=== PATIENT | male | born 1935 | race Caucasian/White ===

== ENCOUNTER 2016-06-01 09:23 | Outpatient (CLI) | payer MEDICARE, OTHER | END 2016-06-01 09:24 | disposition home or self-care (01) | DX: I48.2 Chronic atrial fibrillation (principal); Z79.01 Long term (current) use of anticoagulants ==

== ENCOUNTER 2016-07-06 08:32 | Outpatient (CLI) | payer MEDICARE, OTHER | END 2016-07-06 08:33 | disposition home or self-care (01) | DX: E11.9 Type 2 diabetes mellitus without complications (principal); E78.2 Mixed hyperlipidemia; Z79.899 Other long term (current) drug therapy; I48.2 Chronic atrial fibrillation; R41.2 Retrograde amnesia ==

== ENCOUNTER 2016-08-03 08:00 | Outpatient (CLI) | payer MEDICARE, OTHER | END 2016-08-03 08:01 | DX: I48.2 Chronic atrial fibrillation (principal); Z79.01 Long term (current) use of anticoagulants ==

== ENCOUNTER 2016-08-29 08:40 | Outpatient (CLI) | payer MEDICARE, OTHER ==
[2016-08-29 09:37] LABS: HEMOGLOBIN A1C 1.17 g/dL
== END 2016-08-29 08:41 | disposition home or self-care (01) ==
LOC: LAB 08:40
PROVIDERS: ATTEND Internal Medicine
DX: E11.65 Type 2 diabetes mellitus with hyperglycemia (principal)
CPT/HCPCS: 36415; 82947; 83036

== ENCOUNTER 2016-09-04 10:43 | Outpatient (CLI) | payer MEDICARE, OTHER | END 2016-09-04 10:44 | disposition home or self-care (01) | LOC: LAB 10:43 | PROVIDERS: ATTEND Internal Medicine | DX: I48.2 Chronic atrial fibrillation (principal) | CPT/HCPCS: 85610 ==

== ENCOUNTER 2016-09-28 07:52 | Outpatient (CLI) | payer MEDICARE, OTHER | END 2016-09-28 07:53 | disposition home or self-care (01) | LOC: LAB 07:52 | PROVIDERS: ATTEND Internal Medicine | DX: I48.2 Chronic atrial fibrillation (principal) | CPT/HCPCS: 85610 ==

== ENCOUNTER 2016-10-07 17:49 | Emergency (ER) | payer MEDICARE, OTHER ==
[2016-10-07] MEDS ORDERED: TETANUS/DIPHTHERIA/PERTUSSIS 0.5 ML SYRINGE IM ONE ×2 (17:59→18:19)
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
--- NOTE | 2016-10-07 19:16 | XRAY Preliminary Report ---
Exam: XR Ankle 3 View RT IMPRESSION: Oblique nondisplaced fracture distal right fibula. No other acute fractures. Soft tissue swelling and plantar calcaneal spur. [facility] SITE ID: [id number]
--- NOTE | 2016-10-07 19:18 | XRAY Report ---
EXAM: LEFT ANKLE RADIOGRAPHY EXAM DATE: 10/07/2016 06:29 PM. CLINICAL HISTORY: Foot ankle inj. COMPARISON: 01/24/2016 TECHNIQUE: 3 views. FINDINGS: Bones: Oblique fracture of the distal fibula. Calcific fragments adjacent to the tip of the medial m alleolus are unchanged since 01/24/2016. Small plantar calcaneal spur. Joints: No effusion. No subluxations. The ankle mortise is normally aligned. Soft Tissues: Soft tissue swelling lateral greater than medial malleolus. IMPRESSION: Oblique nondisplaced fracture distal right fibula. No other acute fractures. Soft tissue swelling and plantar calcaneal spur. [facility] Referring Provider Line: [phone] SITE ID: [id number]
--- NOTE | 2016-10-07 19:20 | XRAY Preliminary Report ---
Exam: XR Foot 3 View RT IMPRESSION: 1. See separate ankle radiograph report. No fracture of the right foot. 2. Lateral foot and ankle swelling. [facility] SITE ID: [id number]
[2016-10-07 19:22] VITALS: BP 126/76
--- NOTE | 2016-10-07 19:36 | XRAY Report ---
EXAM: RIGHT FOOT RADIOGRAPHY EXAM DATE: 10/07/2016 06:29 P.M. CLINICAL HISTORY: Foot/ankle injury. COMPARISON: 01/24/2016. TECHNIQUE: 3 views. FINDINGS: Bones: No displaced fracture of the right foot. Nondisplaced distal right fibular fracture better see n on ankle radiograph. Joints: Normal. No subluxations. Soft Tissues: Lateral foot and ankle swelling. IMPRESSION: 1. See separate ankle radiograph report. No fracture of the right foot. 2. Lateral foot and ankle swelling. [facility] Referring Provider Line: [phone] SITE ID: [id number]
== END 2016-10-07 19:28 | disposition home or self-care (01) ==
LOC: ED 17:49
DX: S82.831A Other fracture of upper and lower end of right fibula, initial encounter for closed fracture (principal); S90.811A Abrasion, right foot, initial encounter; V86.59XA Driver of other special all-terrain or other off-road motor vehicle injured in nontraffic accident, initial encounter; I10 Essential (primary) hypertension; E11.9 Type 2 diabetes mellitus without complications; I49.9 Cardiac arrhythmia, unspecified; Z23 Encounter for immunization; Z79.84 Long term (current) use of oral hypoglycemic drugs; Z79.2 Long term (current) use of antibiotics
CPT/HCPCS: 29515; 90471; 99283

== ENCOUNTER 2016-10-17 06:05 | Day surgery (SDC) | payer MEDICARE, OTHER ==
[2016-10-17] MEDS ORDERED: LACTATED RINGERS 1,000 ML IV ONE (07:00)
[2016-10-17] MEDS ORDERED: ceFAZolin 2 GM/50 ML 50 ML IV ONE (07:22)
[2016-10-17] MEDS ORDERED: PROPOFOL 200 MG/20 ML VIAL IVP ONE (08:00)
[2016-10-17] MEDS ORDERED: ACETAMINOPHEN 1,000 MG/100 ML VIAL IV ONE (08:00)
[2016-10-17] MEDS ORDERED: ONDANSETRON 4 MG/2 ML VIAL IVP ONE (08:00)
[2016-10-17] MEDS ORDERED: METOPROLOL 5 MG/5 ML VIAL IVP ONE (08:00)
[2016-10-17] MEDS ORDERED: DEXAMETHASONE 4 MG/ML VIAL IVP ONE (08:00)
[2016-10-17] MEDS ORDERED: LIDOCAINE-MPF 2% 5 ML VIAL IM ONE (08:00)
[2016-10-17] MEDS ORDERED: MIDAZOLAM 2 MG/2 ML VIAL IVP ONE (08:00)
[2016-10-17] MEDS ORDERED: fentaNYL 100 MCG/2 ML VIAL IVP ONE (08:00)
[2016-10-17] MEDS ORDERED: BUPIVACAINE 0.25%-EPI 1:200000 PF 30 ML VIAL SUBQ ONE ×2 (08:10→09:05)
[2016-10-17] MEDS ORDERED: LIDOCAINE 1% 50 ML MDV SUBQ ONE ×2 (08:11→09:05)
[2016-10-17] MEDS: HYDROmorphone 1 MG/ML SYRINGE ONE ×2 (09:35→09:42)
[2016-10-17] MEDS ORDERED: KETOROLAC 15 MG/ML VIAL ONE (09:47)
[2016-10-17] MEDS ORDERED: oxyCOD/ACETAMIN 5 MG/325 MG TABLET PO ONE (10:25)
[2016-10-17 11:21] VITALS: BP 110/82
--- NOTE | 2016-10-17 12:20 | XRAY Report ---
REVISED: THIS REPORT WAS ORIGINALLY SIGNED ON 10/17/2016 @ 2122. ORDERS LINKED ON 10/31/2016. TWO VIEWS OF THE RIGHT ANKLE TAKEN IN SURGERY: 10/17/2016 CLINICAL HISTORY: Internal fixation of right ankle fracture dislocation. FINDINGS: Two views of the right ankle were obtained AP and lateral with the mobile C-arm in surgery. They demonstrate internal fixation of distal right fibular fracture with orthopedic plate and screws bridging the fracture site. Anatomical position and alignment is noted. There is a single screw extending through the fibula and tibia maintaining the reduction of the previously noted subluxation/dislocation of the right ankle. Anatomical position and alignment is now seen at the right ankle joint. Osteoarthritis is detected involving the medial malleolus with some spurring. IMPRESSION: 1. INTERNAL FIXATION AND REDUCTION OF DISTAL RIGHT FIBULAR FRACTURE WITH ANATOMICAL POSITION AND ALIGNMENT. 2. INTERNAL FIXATION AND REDUCTION OF PREVIOUSLY NOTED SUBLUXATION/DISLOCATION OF THE RIGHT ANKLE. JOB #: [id number] EXT JOB #: [id number] GIDEON
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
== END 2016-10-17 06:06 | disposition home or self-care (01) ==
LOC: SDS 06:05
PROVIDERS: ATTEND Orthopaedic Surgery
PROC: 0QSJ04Z Reposition Right Fibula with Internal Fixation Device, Open Approach (ICD-10-PCS; principal; 2016-10-17 07:30)
DX: S82.831A Other fracture of upper and lower end of right fibula, initial encounter for closed fracture (principal); S93.431A Sprain of tibiofibular ligament of right ankle, initial encounter; X50.1XXA Overexertion from prolonged static or awkward postures, initial encounter; Y93.I9 Activity, other involving external motion; I10 Essential (primary) hypertension; E11.9 Type 2 diabetes mellitus without complications; I48.91 Unspecified atrial fibrillation; Z79.01 Long term (current) use of anticoagulants; Z79.84 Long term (current) use of oral hypoglycemic drugs
CPT/HCPCS: 27792; 27829; 73600; A9270; C1713; J0131; J0690; J1170; J7120

== ENCOUNTER 2016-10-25 11:43 | Outpatient (CLI) | payer MEDICARE, OTHER | END 2016-10-25 11:44 | disposition home or self-care (01) | LOC: LAB 11:43 | PROVIDERS: ATTEND Internal Medicine | DX: I48.2 Chronic atrial fibrillation (principal) | CPT/HCPCS: 85610 ==

== ENCOUNTER 2016-11-22 07:31 | Outpatient (CLI) | payer MEDICARE, OTHER ==
[2016-11-22 07:57] LABS: PT - PROTHROMBIN TIME 51.4 secs (9.9-12.6)
[2016-11-22 09:04] LABS: INR 4.5 (0.8-1.2)
== END 2016-11-22 07:32 | disposition home or self-care (01) ==
LOC: LAB 07:31
PROVIDERS: ATTEND Internal Medicine
DX: I48.2 Chronic atrial fibrillation (principal)
CPT/HCPCS: 36415; 85610

== ENCOUNTER 2016-12-05 08:02 | Outpatient (CLI) | payer MEDICARE, OTHER | END 2016-12-05 08:03 | disposition home or self-care (01) | LOC: LAB 08:02 | PROVIDERS: ATTEND Internal Medicine | DX: I48.2 Chronic atrial fibrillation (principal); Z79.01 Long term (current) use of anticoagulants | CPT/HCPCS: 85610 ==

== ENCOUNTER 2016-12-12 08:10 | Outpatient (CLI) | payer MEDICARE, OTHER ==
[2016-12-12 09:28] LABS: HEMOGLOBIN A1C 0.9 g/dL
== END 2016-12-12 08:11 | disposition home or self-care (01) ==
LOC: LAB 08:10
PROVIDERS: ATTEND Internal Medicine
DX: Z79.899 Other long term (current) drug therapy (principal); E11.65 Type 2 diabetes mellitus with hyperglycemia
CPT/HCPCS: 36415; 83036

== ENCOUNTER 2017-01-09 07:47 | Outpatient (CLI) | payer MEDICARE, OTHER | END 2017-01-09 07:48 | disposition home or self-care (01) | LOC: LAB 07:47 | PROVIDERS: ATTEND Internal Medicine | DX: I48.2 Chronic atrial fibrillation (principal); Z79.01 Long term (current) use of anticoagulants | CPT/HCPCS: 85610 ==

== ENCOUNTER 2017-01-23 08:20 | Outpatient (CLI) | payer MEDICARE, OTHER | END 2017-01-23 08:21 | disposition home or self-care (01) | LOC: LAB 08:20 | PROVIDERS: ATTEND Internal Medicine | DX: I48.2 Chronic atrial fibrillation (principal); Z79.01 Long term (current) use of anticoagulants | CPT/HCPCS: 85610 ==

== ENCOUNTER 2017-02-26 08:26 | Outpatient (CLI) | payer MEDICARE, OTHER | END 2017-02-26 08:27 | disposition home or self-care (01) | LOC: LAB 08:26 | PROVIDERS: ATTEND Internal Medicine | DX: I48.2 Chronic atrial fibrillation (principal); Z79.01 Long term (current) use of anticoagulants | CPT/HCPCS: 85610 ==

== ENCOUNTER 2017-03-05 08:07 | Outpatient (CLI) | payer MEDICARE, OTHER | END 2017-03-05 08:08 | disposition home or self-care (01) | LOC: LAB 08:07 | PROVIDERS: ATTEND Internal Medicine | DX: I48.2 Chronic atrial fibrillation (principal); Z79.01 Long term (current) use of anticoagulants | CPT/HCPCS: 85610 ==

== ENCOUNTER 2017-03-22 08:02 | Outpatient (CLI) | payer MEDICARE, OTHER | END 2017-03-22 08:03 | disposition home or self-care (01) | LOC: LAB 08:02 | PROVIDERS: ATTEND Internal Medicine | DX: I48.2 Chronic atrial fibrillation (principal); Z79.01 Long term (current) use of anticoagulants | CPT/HCPCS: 85610 ==

== ENCOUNTER 2017-04-23 09:20 | Outpatient (CLI) | payer MEDICARE, OTHER | END 2017-04-23 09:21 | disposition home or self-care (01) | LOC: LAB 09:20 | PROVIDERS: ATTEND Internal Medicine | DX: I48.2 Chronic atrial fibrillation (principal); Z79.01 Long term (current) use of anticoagulants | CPT/HCPCS: 85610 ==

== ENCOUNTER 2017-05-08 09:18 | Outpatient (CLI) | payer MEDICARE, OTHER | END 2017-05-08 09:19 | disposition home or self-care (01) | LOC: LAB 09:18 | PROVIDERS: ATTEND Internal Medicine | DX: E11.9 Type 2 diabetes mellitus without complications (principal); F03.90 Unspecified dementia, unspecified severity, without behavioral disturbance, psychotic disturbance, mood disturbance, and anxiety; I48.91 Unspecified atrial fibrillation; I10 Essential (primary) hypertension; E78.5 Hyperlipidemia, unspecified | CPT/HCPCS: 36415; 80053; 80061; 83036; 83721; 85025 ==

== ENCOUNTER 2017-05-09 08:49 | Outpatient (CLI) | payer MEDICARE, OTHER ==
[2017-05-09 09:11] LABS: BASOPHILS # (AUTO) 0.1 10^3/uL (0.0-0.1); BASOPHILS % (AUTO) 1.1 %; EOSINOPHILS # (AUTO) 0.2 10^3/uL (0.0-0.7); EOSINOPHILS % (AUTO) 1.7 %; HGB - HEMOGLOBIN 13.3 g/dL (14.0-18.0); LYMPHOCYTES # (AUTO) 2.5 10^3/uL (1.5-3.5); LYMPHOCYTES % (AUTO) 26.7 %; MEAN CORPUSCULAR HEMOGLOBIN 29.5 pg (27.0-31.0); MEAN CORPUSCULAR HGB CONC 33.8 g/dL (32.0-36.0); MEAN CORPUSCULAR VOLUME 87.2 fL (80.0-94.0); MEAN PLATELET VOLUME 9.1 fL (7.4-11.4); MONOCYTES # (AUTO) 0.8 10^3/uL (0.0-1.0); MONOCYTES % (AUTO) 8.1 %; NEUTROPHILS # (AUTO) 5.8 10^3/uL (1.5-6.6); NEUTROPHILS % (AUTO) 62.4 %; PLT - PLATELET COUNT 167 10^3/uL (130-450); RED CELL DISTRIBUTION WIDTH 14.4 % (12.0-15.0); WHITE BLOOD COUNT 9.3 x10^3/uL (4.8-10.8)
[2017-05-09 09:23] LABS: HB2 TOTAL 14.3 g/dL; HEMOGLOBIN A1C 1.02 g/dL; HEMOGLOBIN A1C % 8.7 % (4.6-6.2)
[2017-05-09 09:27] LABS: ALBUMIN 4.1 g/dL (3.2-5.5); ALBUMIN/GLOBULIN RATIO 1.6 (1.0-2.2); ALKALINE PHOSPHATASE 43 IU/L (42-121); ALT ALANINE AMINOTRANSFERASE 17 IU/L (10-60); AST ASPARTATE AMINOTRANSFERASE 16 IU/L (10-42); BILIRUBIN,TOTAL 0.9 mg/dL (0.2-1.0); BUN - BLOOD UREA NITROGEN 13 mg/dL (6-20); CALCIUM 8.9 mg/dL (8.5-10.3); CARBON DIOXIDE - CO2 25 mmol/L (21-32); CHLORIDE 102 mmol/L (101-111); CHOL/HDL RATIO 2.5 (<5.0); CHOLESTEROL 104 mg/dL; CREATININE 0.8 mg/dL (0.6-1.2); GFR - MDRD 93 (>89); GLUCOSE 188 mg/dL (70-100); HDL CHOLESTEROL 42 mg/dL; LDL CHOLESTEROL,CALCULATED 47 mg/dL; LDL/HDL RATIO 1.1 (<3.6); SODIUM 138 mmol/L (135-145); TOTAL PROTEIN 6.6 g/dL (6.7-8.2); VLDL CHOLESTEROL 15 mg/dL
== END 2017-05-09 08:50 | disposition home or self-care (01) ==
LOC: LAB 08:49
PROVIDERS: ATTEND Internal Medicine
DX: E11.9 Type 2 diabetes mellitus without complications (principal); F03.90 Unspecified dementia, unspecified severity, without behavioral disturbance, psychotic disturbance, mood disturbance, and anxiety; I48.91 Unspecified atrial fibrillation; I10 Essential (primary) hypertension; E78.5 Hyperlipidemia, unspecified
CPT/HCPCS: 36415; 80053; 80061; 83036; 83721; 85025

== ENCOUNTER 2017-05-10 07:53 | Outpatient (CLI) | payer MEDICARE, OTHER | END 2017-05-10 07:54 | disposition home or self-care (01) | LOC: LAB 07:53 | PROVIDERS: ATTEND Internal Medicine | DX: I48.2 Chronic atrial fibrillation (principal); Z79.01 Long term (current) use of anticoagulants | CPT/HCPCS: 85610 ==

== ENCOUNTER 2017-05-29 09:04 | Outpatient (CLI) | payer MEDICARE, OTHER | END 2017-05-29 09:05 | disposition home or self-care (01) | LOC: LAB 09:04 | PROVIDERS: ATTEND Internal Medicine | DX: I48.2 Chronic atrial fibrillation (principal); Z79.01 Long term (current) use of anticoagulants | CPT/HCPCS: 85610 ==

== ENCOUNTER 2017-06-06 08:20 | Outpatient (CLI) | payer MEDICARE, OTHER | END 2017-06-06 08:21 | disposition home or self-care (01) | LOC: LAB 08:20 | PROVIDERS: ATTEND Internal Medicine | DX: I48.2 Chronic atrial fibrillation (principal); Z79.01 Long term (current) use of anticoagulants | CPT/HCPCS: 85610 ==

== ENCOUNTER 2017-06-18 08:50 | Outpatient (CLI) | payer MEDICARE, OTHER ==
[2017-06-18 14:24] LABS: HB2 TOTAL 15.2 g/dL; HEMOGLOBIN A1C 1.16 g/dL; HEMOGLOBIN A1C % 9.1 % (4.6-6.2)
== END 2017-06-18 08:51 | disposition home or self-care (01) ==
LOC: LAB.R 08:50
PROVIDERS: ATTEND Internal Medicine
DX: E11.9 Type 2 diabetes mellitus without complications (principal)
CPT/HCPCS: 83036

== ENCOUNTER 2017-07-03 09:12 | Outpatient (CLI) | payer MEDICARE, OTHER | END 2017-07-03 09:13 | disposition home or self-care (01) | LOC: LAB 09:12 | PROVIDERS: ATTEND Internal Medicine | DX: I48.2 Chronic atrial fibrillation (principal); Z79.01 Long term (current) use of anticoagulants | CPT/HCPCS: 85610 ==

== ENCOUNTER 2017-07-18 07:45 | Outpatient (CLI) | payer MEDICARE, OTHER | END 2017-07-18 07:46 | disposition home or self-care (01) | LOC: LAB 07:45 | PROVIDERS: ATTEND Internal Medicine | DX: I48.2 Chronic atrial fibrillation (principal); Z79.01 Long term (current) use of anticoagulants | CPT/HCPCS: 85610 ==

== ENCOUNTER 2017-07-23 08:21 | Outpatient (CLI) | payer MEDICARE, OTHER | END 2017-07-23 08:22 | disposition home or self-care (01) | LOC: LAB 08:21 | PROVIDERS: ATTEND Internal Medicine | DX: I48.2 Chronic atrial fibrillation (principal); Z79.01 Long term (current) use of anticoagulants | CPT/HCPCS: 85610 ==

== ENCOUNTER 2017-07-30 08:25 | Outpatient (CLI) | payer MEDICARE, OTHER | END 2017-07-30 08:26 | disposition home or self-care (01) | LOC: LAB 08:25 | PROVIDERS: ATTEND Internal Medicine | DX: I48.2 Chronic atrial fibrillation (principal); Z79.01 Long term (current) use of anticoagulants | CPT/HCPCS: 85610 ==

== ENCOUNTER 2017-08-15 08:40 | Outpatient (CLI) | payer MEDICARE, OTHER | END 2017-08-15 08:41 | disposition home or self-care (01) | LOC: LAB 08:40 | PROVIDERS: ATTEND Internal Medicine | DX: I48.2 Chronic atrial fibrillation (principal); Z79.01 Long term (current) use of anticoagulants | CPT/HCPCS: 85610 ==

== ENCOUNTER 2017-08-30 08:11 | Outpatient (CLI) | payer MEDICARE, OTHER | END 2017-08-30 08:12 | disposition home or self-care (01) | LOC: LAB 08:11 | PROVIDERS: ATTEND Internal Medicine | DX: I48.2 Chronic atrial fibrillation (principal); Z79.01 Long term (current) use of anticoagulants | CPT/HCPCS: 85610 ==

== ENCOUNTER 2017-09-13 08:31 | Outpatient (CLI) | payer MEDICARE, OTHER | END 2017-09-13 08:32 | disposition home or self-care (01) | LOC: LAB 08:31 | PROVIDERS: ATTEND Internal Medicine | DX: I48.2 Chronic atrial fibrillation (principal); Z79.01 Long term (current) use of anticoagulants | CPT/HCPCS: 85610 ==

== ENCOUNTER 2017-09-27 08:20 | Outpatient (CLI) | payer MEDICARE, OTHER | END 2017-09-27 08:21 | disposition home or self-care (01) | LOC: LAB 08:20 | PROVIDERS: ATTEND Internal Medicine | DX: I48.2 Chronic atrial fibrillation (principal); Z79.01 Long term (current) use of anticoagulants; E11.9 Type 2 diabetes mellitus without complications | CPT/HCPCS: 83036; 85610 ==

== ENCOUNTER 2017-09-27 08:55 | Outpatient (CLI) | payer MEDICARE, OTHER ==
[2017-09-27 13:20] LABS: HB2 TOTAL 15.7 g/dL; HEMOGLOBIN A1C 1.42 g/dL; HEMOGLOBIN A1C % 10.4 % (4.6-6.2)
== END 2017-09-27 08:56 | disposition home or self-care (01) ==
LOC: LAB.R 08:55
PROVIDERS: ATTEND Internal Medicine
DX: E11.9 Type 2 diabetes mellitus without complications (principal)
CPT/HCPCS: 83036

== ENCOUNTER 2017-11-05 07:58 | Outpatient (CLI) | payer MEDICARE, OTHER | END 2017-11-05 07:59 | disposition home or self-care (01) | LOC: LAB 07:58 | PROVIDERS: ATTEND Internal Medicine | DX: I48.2 Chronic atrial fibrillation (principal); Z79.01 Long term (current) use of anticoagulants | CPT/HCPCS: 85610 ==

== ENCOUNTER 2017-12-06 08:14 | Outpatient (CLI) | payer MEDICARE, OTHER | END 2017-12-06 08:15 | disposition home or self-care (01) | LOC: LAB 08:14 | PROVIDERS: ATTEND Internal Medicine | DX: I48.2 Chronic atrial fibrillation (principal); Z79.01 Long term (current) use of anticoagulants | CPT/HCPCS: 85610 ==

== ENCOUNTER 2018-01-03 08:37 | Outpatient (CLI) | payer MEDICARE, OTHER | END 2018-01-03 08:38 | disposition home or self-care (01) | LOC: LAB 08:37 | PROVIDERS: ATTEND Internal Medicine | DX: I48.2 Chronic atrial fibrillation (principal); Z79.01 Long term (current) use of anticoagulants | CPT/HCPCS: 85610 ==

== ENCOUNTER 2018-01-24 08:32 | Outpatient (CLI) | payer MEDICARE, OTHER | END 2018-01-24 08:33 | disposition home or self-care (01) | LOC: LAB 08:32 | PROVIDERS: ATTEND Internal Medicine | DX: I48.2 Chronic atrial fibrillation (principal); Z79.01 Long term (current) use of anticoagulants | CPT/HCPCS: 85610 ==

== ENCOUNTER 2018-01-29 09:02 | Outpatient (CLI) | payer MEDICARE, OTHER ==
[2018-01-29 13:53] LABS: HB2 TOTAL 14.4 g/dL; HEMOGLOBIN A1C 1.4 g/dL
== END 2018-01-29 09:03 | disposition home or self-care (01) ==
LOC: LAB.R 09:02
PROVIDERS: ATTEND Internal Medicine
DX: E11.9 Type 2 diabetes mellitus without complications (principal)
CPT/HCPCS: 83036

== ENCOUNTER 2018-02-13 14:17 | Outpatient (CLI) | payer MEDICARE, OTHER ==
[2018-02-13 14:54] LABS: INR 2.1 (0.8-1.2); PT - PROTHROMBIN TIME 23.5 secs (9.9-12.6)
== END 2018-02-13 14:18 | disposition home or self-care (01) ==
LOC: LAB 14:17
PROVIDERS: ATTEND Internal Medicine
DX: I48.2 Chronic atrial fibrillation (principal); Z79.01 Long term (current) use of anticoagulants
CPT/HCPCS: 36415; 85610

== ENCOUNTER 2018-03-13 08:23 | Outpatient (CLI) | payer MEDICARE, OTHER | END 2018-03-13 08:24 | disposition home or self-care (01) | LOC: LAB 08:23 | PROVIDERS: ATTEND Internal Medicine | DX: I48.2 Chronic atrial fibrillation (principal); Z79.01 Long term (current) use of anticoagulants | CPT/HCPCS: 85610 ==

== ENCOUNTER 2018-04-11 07:57 | Outpatient (CLI) | payer MEDICARE, OTHER ==
[2018-04-11 09:45] LABS: BASOPHILS % (AUTO) 0.6 %; EOSINOPHILS # (AUTO) 0.1 10^3/uL (0.0-0.7); EOSINOPHILS % (AUTO) 1.7 %; HGB - HEMOGLOBIN 14.8 g/dL (14.0-18.0); LYMPHOCYTES # (AUTO) 2.6 10^3/uL (1.5-3.5); LYMPHOCYTES % (AUTO) 31.3 %; MEAN CORPUSCULAR HEMOGLOBIN 29.7 pg (27.0-31.0); MEAN CORPUSCULAR VOLUME 87.4 fL (80.0-94.0); MEAN PLATELET VOLUME 9.7 fL (7.4-11.4); MONOCYTES # (AUTO) 0.7 10^3/uL (0.0-1.0); MONOCYTES % (AUTO) 8.1 %; NEUTROPHILS # (AUTO) 4.8 10^3/uL (1.5-6.6); NEUTROPHILS % (AUTO) 58.3 %; PLT - PLATELET COUNT 187 10^3/uL (130-450); RED BLOOD COUNT 4.98 10^6/uL (4.70-6.10); RED CELL DISTRIBUTION WIDTH 13.3 % (12.0-15.0); WHITE BLOOD COUNT 8.2 x10^3/uL (4.8-10.8)
[2018-04-11 09:59] LABS: ALBUMIN 4.1 g/dL (3.2-5.5); ALBUMIN/GLOBULIN RATIO 1.6 (1.0-2.2); ALKALINE PHOSPHATASE 59 IU/L (42-121); ALT ALANINE AMINOTRANSFERASE 18 IU/L (10-60); AST ASPARTATE AMINOTRANSFERASE 15 IU/L (10-42); BILIRUBIN,TOTAL 1.3 mg/dL (0.2-1.0); BUN - BLOOD UREA NITROGEN 12 mg/dL (6-20); CALCIUM 8.9 mg/dL (8.5-10.3); CARBON DIOXIDE - CO2 26 mmol/L (21-32); CHLORIDE 99 mmol/L (101-111); CHOL/HDL RATIO 2.9 (<5.0); CHOLESTEROL 112 mg/dL; CREATININE 0.9 mg/dL (0.6-1.2); GFR - MDRD 81 (>89); GLUCOSE 250 mg/dL (70-100); HDL CHOLESTEROL 39 mg/dL; LDL CHOLESTEROL,CALCULATED 54 mg/dL; LDL/HDL RATIO 1.4 (<3.6); SODIUM 135 mmol/L (135-145); TOTAL PROTEIN 6.6 g/dL (6.7-8.2); VLDL CHOLESTEROL 19 mg/dL
[2018-04-11 10:20] LABS: HB2 TOTAL 16.3 g/dL; HEMOGLOBIN A1C 1.53 g/dL; HEMOGLOBIN A1C % 10.7 % (4.6-6.2)
== END 2018-04-11 23:59 | disposition home or self-care (01) ==
LOC: LAB.R 07:57
PROVIDERS: ATTEND Internal Medicine
DX: E78.5 Hyperlipidemia, unspecified (principal); E11.9 Type 2 diabetes mellitus without complications; I48.91 Unspecified atrial fibrillation; I10 Essential (primary) hypertension
CPT/HCPCS: 80053; 80061; 83036; 83721; 84443; 85025

== ENCOUNTER 2018-04-17 09:13 | Outpatient (CLI) | payer MEDICARE, OTHER | END 2018-04-17 09:14 | disposition home or self-care (01) | LOC: LAB 09:13 | PROVIDERS: ATTEND Internal Medicine | DX: I48.2 Chronic atrial fibrillation (principal); Z79.01 Long term (current) use of anticoagulants | CPT/HCPCS: 85610 ==

== ENCOUNTER 2018-05-23 09:12 | Outpatient (CLI) | payer MEDICARE, OTHER | END 2018-05-23 09:13 | disposition home or self-care (01) | LOC: LAB 09:12 | PROVIDERS: ATTEND Internal Medicine | DX: I48.2 Chronic atrial fibrillation (principal); Z79.01 Long term (current) use of anticoagulants | CPT/HCPCS: 85610 ==

== ENCOUNTER 2018-06-28 08:19 | Outpatient (CLI) | payer MEDICARE, OTHER | END 2018-06-28 08:20 | disposition home or self-care (01) | LOC: LAB 08:19 | PROVIDERS: ATTEND Internal Medicine | DX: I48.91 Unspecified atrial fibrillation (principal); Z79.01 Long term (current) use of anticoagulants | CPT/HCPCS: 85610 ==

== ENCOUNTER 2018-07-11 12:11 | Emergency (ER) | payer MEDICARE, OTHER ==
--- NOTE | 2018-07-11 13:03 | ED Physician Documentation ---
History of Present Illness - Stated complaint Stated Complaint: TOE INFECTION - Chief complaint Chief Complaint: General - History obtained from History obtained from: Patient - History of Present Illness Timing: Other (This is an 83-year-old gentleman with somewhat poorly controlled type 2 diabetes. His recent A1c's have been around 10 looking at the chart. He is also on warfarin for A. fib. He went on a fishing trip about a week ago and developed a blister on the left great toe which subsequently got black and popped and he also developed a blister on the second toe which popped. He does not know of any neuropathy that he has formally, but he says he is somewhat numb in his feet and he has no pain from this. Otherwise he feels fine without any fevers or chills.) Review of Systems Ten Systems: 10 systems reviewed and negative Constitutional: denies: Fever, Chills Cardiac: reports: Reviewed and negative Respiratory: reports: Reviewed and negative GI: reports: Reviewed and negative PD PAST MEDICAL HISTORY - Past Medical History Cardiovascular: Hypertension, Atrial fibrillation Respiratory: None Endocrine/Autoimmune: Type 2 diabetes GI: None : None HEENT: None Psych: None Musculoskeletal: Osteoarthritis Derm: None - Past Surgical History Past Surgical History: Yes General: Appendectomy Ortho: Arthroscopic surgery Cardiovascular: Other HEENT: Cataracts Derm: Skin cancer surgery - Present Medications Home Medications: Ambulatory Orders Medication Instructions Recorded Confirmed Metformin HCl [Metformin HCl ER] 500 mg PO BID 03/20/13 07/11/18 RX: Lovastatin 40 mg PO DAILY 03/20/13 07/11/18 Warfarin [Coumadin] 5 - 10 mg PO DAILY 03/20/13 07/11/18 RX: Lisinopril 5 mg PO DAILY 10/07/16 07/11/18 RX: Metoprolol Tartrate 100 mg PO DAILY 10/07/16 07/11/18 RX: Glimepiride 4 mg PO BID 04/29/18 07/11/18 Insulin NPH Human Isophane 12 unit SUBQ BID 05/29/18 07/11/18 [Novolin N] Amox/Clav 875/125 [Augmentin] 1 each PO Q12H #20 tablet 07/11/18 - Allergies Allergies/Adverse Reactions: Allergies Allergy/AdvReac Type Severity Reaction Status Date / Time No Known Drug Allergies Allergy Verified 07/11/18 12:20 - Social History Does the pt smoke?: No Smoking Status: Unknown if ever smoked Does the pt drink ETOH?: No Does the pt have substance abuse?: No - Family History Family history: reports: Non contributory - Immunizations Immunizations are current?: Yes - POLST Patient has POLST: No PD ED PE NORMAL - Vitals Vital signs reviewed: Yes - General General: Alert and oriented X 3, No acute distress - HEENT HEENT: PERRL, EOMI - Neck Neck: Supple, no meningeal sign, No bony TTP - Cardiac Cardiac: RRR, No murmur - Respiratory Respiratory: No respiratory distress, Clear bilaterally - Abdomen Abdomen: Normal bowel sounds, Soft, Non tender - Back Back: No CVA TTP, No spinal TTP - Derm Derm: Normal color, Warm and dry, No rash - Extremities Extremities: Other (On the lateral side of the left great toe there is an infection. It seems pretty shallow, it was cultured during exam. He has not had a toenail there for about a year he says. There is also a blister on the dorsal side of the second toe. There does not seem to be any material in that of significance. There is really no cellulitis per se. There is no tenderness.) - Neuro Neuro: Alert and oriented X 3, Normal speech - Psych Psych: Normal mood, Normal affect Results - Vitals Vitals: Vital Signs - 24 hr 07/11/18 07/11/18 12:16 13:34 Temperature 35.9 C L Heart Rate 78 81 Respiratory 14 20 Rate Blood Pressure 167/98 H 119/69 O2 Saturation 98 97 Oxygen O2 Source Room air - Labs Labs: Laboratory Tests 07/11/18 07/11/18 07/11/18 12:34 12:34 12:34 WBC 9.1 RBC 4.72 Hgb 13.8 L Hct 41.7 L MCV 88.4 MCH 29.2 MCHC 33.1 RDW 13.4 Plt Count 191 MPV 8.8 Neut # (Auto) 6.2 Lymph # (Auto) 1.9 [place] # (Auto) 0.7 Eos # (Auto) 0.2 Baso # (Auto) 0.1 Absolute Nucleated RBC 0.00 Nucleated RBC % 0.0 ESR 1 PT INR Sodium 137 Potassium 4.5 Chloride 104 Carbon Dioxide 26 Anion Gap 7.0 BUN 16 Creatinine 0.9 Estimated GFR (MDRD) 81 L Glucose 171 H Calcium 9.0 Total Bilirubin 1.0 AST 20 ALT 18 Alkaline Phosphatase 48 C-Reactive Protein Total Protein 6.4 L Albumin 4.0 Globulin 2.4 Albumin/Globulin Ratio 1.7 Lipase 36 07/11/18 07/11/18 12:34 13:02 WBC RBC Hgb Hct MCV MCH MCHC RDW Plt Count MPV Neut # (Auto) Lymph # (Auto) [place] # (Auto) Eos # (Auto) Baso # (Auto) Absolute Nucleated RBC Nucleated RBC % ESR PT 16.9 H INR 1.5 H Sodium Potassium Chloride Carbon Dioxide Anion Gap BUN Creatinine Estimated GFR (MDRD) Glucose Calcium Total Bilirubin AST ALT Alkaline Phosphatase C-Reactive Protein < 1.0 Total Protein Albumin Globulin Albumin/Globulin Ratio Lipase PD MEDICAL DECISION MAKING - ED course ED course: This is a very pleasant 82-year-old gentleman with poorly controlled diabetes on warfarin although subtherapeutic presents with a diabetic foot infection. His inflammatory markers are reassuring and the exam does not suggest deep involvement. He has a nondiagnostic x-ray for osteomyelitis. We will trial Augmentin and close watchful waiting and primary care follow-up was advised. Departure - Departure Disposition: 01 Home, Self Care Clinical Impression: Diabetes mellitus with hyperglycemia, Diabetic foot infection, Subtherapeutic international normalized ratio (INR) Condition: Good Record reviewed to determine appropriate education?: Yes Instructions: Diabetic Foot Ulcer Dc, ED Foot Care Diabetic Prescriptions: Amox/Clav 875/125 [Augmentin] 1 each PO Q12H #20 tablet Comments: We are performing a wound culture, the results should be done in 48-72 hours. If antibiotic change is necessary we will call you. Return if worse in the meantime, especially if you develop increased pain, fevers, cannot keep down the medication. Otherwise follow-up with your physician in approximately 2-3 days. Often times when you start antibiotics while you are taking anticoagulants such as Coumadin or warfarin, your INR will go up. You need to have your INR checked frequently while on the antibiotics. Have it checked in 3 days, again in 6 days, and at least weekly while you are on antibiotics. Dose adjustments of your anticoagulants may be necessary. Discharge Date/Time: 07/11/18 14:03
[2018-07-11 13:05] LABS: BASOPHILS # (AUTO) 0.1 10^3/uL (0.0-0.1); BASOPHILS % (AUTO) 0.7 %; EOSINOPHILS # (AUTO) 0.2 10^3/uL (0.0-0.7); HGB - HEMOGLOBIN 13.8 g/dL (14.0-18.0); LYMPHOCYTES # (AUTO) 1.9 10^3/uL (1.5-3.5); LYMPHOCYTES % (AUTO) 20.9 %; MEAN CORPUSCULAR HEMOGLOBIN 29.2 pg (27.0-31.0); MEAN CORPUSCULAR HGB CONC 33.1 g/dL (32.0-36.0); MEAN CORPUSCULAR VOLUME 88.4 fL (80.0-94.0); MEAN PLATELET VOLUME 8.8 fL (7.4-11.4); MONOCYTES # (AUTO) 0.7 10^3/uL (0.0-1.0); MONOCYTES % (AUTO) 8.1 %; NEUTROPHILS # (AUTO) 6.2 10^3/uL (1.5-6.6); NEUTROPHILS % (AUTO) 68.3 %; PLT - PLATELET COUNT 191 10^3/uL (130-450); RED BLOOD COUNT 4.72 10^6/uL (4.70-6.10); RED CELL DISTRIBUTION WIDTH 13.4 % (12.0-15.0); WHITE BLOOD COUNT 9.1 x10^3/uL (4.8-10.8)
--- NOTE | 2018-07-11 13:11 | XRAY Report ---
Reason: L great toe and 2nd toe infections Procedure Date: 07/11/2018 Accession Number: [id number] / [id number] Procedure: XR - Foot 3 View LT CPT Code: FULL RESULT: EXAM: LEFT FOOT RADIOGRAPHY EXAM DATE: 07/11/2018 12:38 PM. CLINICAL HISTORY: Left great toe and second toe infections. COMPARISON: FOOT 3 VIEW RT 08/14/2013 3:35 PM. TECHNIQUE: 3 views. FINDINGS: Bones: Questionable well-demarcated lucency in the distal first phalanx without definite osseous destruction, osteomyelitis difficult to exclude. Central lucency in the second proximal phalangeal diaphysis without cortical osseous destruction, osteomyelitis again difficult to exclude radiographically. No fractures detected. Joints: Normal. No subluxations. Soft Tissues: No soft tissue gas or obvious soft tissue defect is detected. IMPRESSION: Questionable osseous changes without definite cortical destruction. No overt soft tissue gas. [facility]
[2018-07-11 13:18] LABS: ALBUMIN/GLOBULIN RATIO 1.7 (1.0-2.2); CREATININE 0.9 mg/dL (0.6-1.2); TOTAL PROTEIN 6.4 g/dL (6.7-8.2)
[2018-07-11 13:31] LABS: INR 1.5 (0.8-1.2); PT - PROTHROMBIN TIME 16.9 secs (9.9-12.6)
[2018-07-11 13:35] VITALS: BP 119/69
== END 2018-07-11 14:03 | disposition home or self-care (01) ==
LOC: ED 12:11
DX: E11.65 Type 2 diabetes mellitus with hyperglycemia (principal); E11.621 Type 2 diabetes mellitus with foot ulcer; L97.529 Non-pressure chronic ulcer of other part of left foot with unspecified severity; S90.425A Blister (nonthermal), left lesser toe(s), initial encounter; R79.1 Abnormal coagulation profile; I10 Essential (primary) hypertension; I48.91 Unspecified atrial fibrillation; Z79.4 Long term (current) use of insulin; Z79.01 Long term (current) use of anticoagulants; X58.XXXA Exposure to other specified factors, initial encounter
CPT/HCPCS: 36415; 80053; 83690; 85025; 85610; 85651; 86140; 87070; 87181; 87205; 99283

== ENCOUNTER 2018-07-15 08:11 | Outpatient (CLI) | payer MEDICARE, OTHER | END 2018-07-15 08:12 | disposition home or self-care (01) | LOC: LAB 08:11 | PROVIDERS: ATTEND Internal Medicine | DX: Z79.01 Long term (current) use of anticoagulants (principal); I48.91 Unspecified atrial fibrillation | CPT/HCPCS: 85610 ==

== ENCOUNTER 2018-07-25 14:43 | Outpatient (CLI) | payer MEDICARE, OTHER ==
[2018-07-25 18:34] LABS: INR 1.8 (0.8-1.2); PT - PROTHROMBIN TIME 20.1 secs (9.9-12.6)
== END 2018-07-25 14:44 | disposition home or self-care (01) ==
LOC: LAB.F 14:43
PROVIDERS: ATTEND Registered Nurse
DX: I48.91 Unspecified atrial fibrillation (principal); Z79.01 Long term (current) use of anticoagulants
CPT/HCPCS: 36415; 85610

== ENCOUNTER 2018-09-03 08:00 | Outpatient (CLI) | payer MEDICARE, OTHER ==
[2018-09-03 08:55] LABS: BASOPHILS # (AUTO) 0.1 10^3/uL (0.0-0.1); EOSINOPHILS # (AUTO) 0.2 10^3/uL (0.0-0.7); LYMPHOCYTES # (AUTO) 3.1 10^3/uL (1.5-3.5); LYMPHOCYTES % (AUTO) 33.1 %; MEAN CORPUSCULAR HGB CONC 33.1 g/dL (32.0-36.0); MEAN CORPUSCULAR VOLUME 87.7 fL (80.0-94.0); MEAN PLATELET VOLUME 8.7 fL (7.4-11.4); MONOCYTES # (AUTO) 0.8 10^3/uL (0.0-1.0); MONOCYTES % (AUTO) 8.9 %; NEUTROPHILS # (AUTO) 5.1 10^3/uL (1.5-6.6); PLT - PLATELET COUNT 203 10^3/uL (130-450); RED BLOOD COUNT 5.17 10^6/uL (4.70-6.10); RED CELL DISTRIBUTION WIDTH 13.7 % (12.0-15.0); WHITE BLOOD COUNT 9.2 x10^3/uL (4.8-10.8)
[2018-09-03 09:02] LABS: INR 2.4 (0.8-1.2); PT - PROTHROMBIN TIME 26.5 secs (9.9-12.6)
[2018-09-03 09:05] LABS: CALCIUM 9.5 mg/dL (8.5-10.3); CREATININE 1.1 mg/dL (0.6-1.2)
[2018-09-03 09:18] LABS: HB2 TOTAL 16.1 g/dL; HEMOGLOBIN A1C 1.01 g/dL; HEMOGLOBIN A1C % 7.9 % (4.6-6.2)
== END 2018-09-03 23:59 | disposition home or self-care (01) ==
LOC: LAB 08:00
PROVIDERS: ATTEND Family Medicine
DX: E11.621 Type 2 diabetes mellitus with foot ulcer (principal); I48.91 Unspecified atrial fibrillation; I10 Essential (primary) hypertension
CPT/HCPCS: 36415; 80048; 83036; 85025; 85610

== ENCOUNTER 2018-09-16 08:15 | Outpatient (CLI) | payer MEDICARE, OTHER ==
[2018-09-16 08:50] LABS: ALBUMIN 4.4 g/dL (3.2-5.5); ALBUMIN/GLOBULIN RATIO 1.7 (1.0-2.2); BILIRUBIN,TOTAL 1.5 mg/dL (0.2-1.0); CALCIUM 9.1 mg/dL (8.5-10.3); CREATININE 1.1 mg/dL (0.6-1.2)
[2018-09-16 08:51] LABS: INR 1.4 (0.8-1.2); PT - PROTHROMBIN TIME 15.4 secs (9.9-12.6)
[2018-09-16 08:53] LABS: CREATININE,URINE 153.4 mg/dL; MICROALBUMIN,URINE 2.3 mg/dL (0-300.0)
[2018-09-16 08:56] LABS: HEMOGLOBIN A1C 0.86 g/dL; HEMOGLOBIN A1C % 7.8 % (4.6-6.2)
== END 2018-09-16 08:16 | disposition home or self-care (01) ==
LOC: LAB 08:15
PROVIDERS: ATTEND Family Medicine
DX: E78.5 Hyperlipidemia, unspecified (principal); E11.9 Type 2 diabetes mellitus without complications; Z79.01 Long term (current) use of anticoagulants; I48.91 Unspecified atrial fibrillation
CPT/HCPCS: 36415; 80053; 82043; 82570; 83036; 85610

== ENCOUNTER 2018-09-24 08:19 | Outpatient (CLI) | payer MEDICARE, OTHER | END 2018-09-24 08:20 | disposition home or self-care (01) | LOC: LAB 08:19 | PROVIDERS: ATTEND Family Medicine | DX: I48.91 Unspecified atrial fibrillation (principal); Z79.01 Long term (current) use of anticoagulants | CPT/HCPCS: 85610 ==

== ENCOUNTER 2018-09-30 08:19 | Outpatient (CLI) | payer MEDICARE, OTHER | END 2018-09-30 08:20 | disposition home or self-care (01) | LOC: LAB 08:19 | PROVIDERS: ATTEND Family Medicine | DX: I48.91 Unspecified atrial fibrillation (principal); Z79.01 Long term (current) use of anticoagulants | CPT/HCPCS: 85610 ==

== ENCOUNTER 2018-10-07 08:20 | Outpatient (CLI) | payer MEDICARE, OTHER | END 2018-10-07 08:21 | disposition home or self-care (01) | LOC: LAB 08:20 | PROVIDERS: ATTEND Family Medicine | DX: I48.91 Unspecified atrial fibrillation (principal); Z79.01 Long term (current) use of anticoagulants | CPT/HCPCS: 85610 ==

== ENCOUNTER 2018-11-11 08:52 | Outpatient (CLI) | payer MEDICARE, OTHER | END 2018-11-11 08:53 | disposition home or self-care (01) | LOC: LAB 08:52 | PROVIDERS: ATTEND Family Medicine | DX: Z79.01 Long term (current) use of anticoagulants (principal); I48.91 Unspecified atrial fibrillation | CPT/HCPCS: 85610 ==

== ENCOUNTER 2018-11-18 08:33 | Outpatient (CLI) | payer MEDICARE, OTHER | END 2018-11-18 08:34 | disposition home or self-care (01) | LOC: LAB 08:33 | PROVIDERS: ATTEND Family Medicine | DX: I48.91 Unspecified atrial fibrillation (principal); Z79.01 Long term (current) use of anticoagulants | CPT/HCPCS: 85610 ==

== ENCOUNTER 2018-11-25 08:31 | Outpatient (CLI) | payer MEDICARE, OTHER | END 2018-11-25 08:32 | disposition home or self-care (01) | LOC: LAB 08:31 | PROVIDERS: ATTEND Family Medicine | DX: I48.91 Unspecified atrial fibrillation (principal); Z79.01 Long term (current) use of anticoagulants | CPT/HCPCS: 85610 ==

== ENCOUNTER 2019-01-06 09:18 | Outpatient (CLI) | payer MEDICARE, OTHER | END 2019-01-06 09:19 | disposition home or self-care (01) | LOC: LAB 09:18 | PROVIDERS: ATTEND Family Medicine | DX: I48.91 Unspecified atrial fibrillation (principal); Z79.01 Long term (current) use of anticoagulants | CPT/HCPCS: 85610 ==

== ENCOUNTER 2019-03-10 09:11 | Outpatient (CLI) | payer MEDICARE, OTHER ==
[2019-03-10 09:52] LABS: BASOPHILS # (AUTO) 0.1 10^3/uL (0.0-0.1); BASOPHILS % (AUTO) 0.8 %; EOSINOPHILS # (AUTO) 0.2 10^3/uL (0.0-0.7); HGB - HEMOGLOBIN 14.9 g/dL (14.0-18.0); LYMPHOCYTES # (AUTO) 2.9 10^3/uL (1.5-3.5); LYMPHOCYTES % (AUTO) 34.4 %; MEAN CORPUSCULAR HEMOGLOBIN 28.5 pg (27.0-31.0); MEAN CORPUSCULAR HGB CONC 32.3 g/dL (32.0-36.0); MEAN CORPUSCULAR VOLUME 88.5 fL (80.0-94.0); MEAN PLATELET VOLUME 10.2 fL (7.4-11.4); MONOCYTES # (AUTO) 0.7 10^3/uL (0.0-1.0); MONOCYTES % (AUTO) 7.9 %; NEUTROPHILS # (AUTO) 4.6 10^3/uL (1.5-6.6); NEUTROPHILS % (AUTO) 54.2 %; PLT - PLATELET COUNT 184 10^3/uL (130-450); RED BLOOD COUNT 5.22 10^6/uL (4.70-6.10); WHITE BLOOD COUNT 8.4 x10^3/uL (4.8-10.8)
[2019-03-10 09:58] LABS: INR 2.2 (0.8-1.2); PT - PROTHROMBIN TIME 23.9 secs (9.9-12.6)
[2019-03-10 10:07] LABS: HB2 TOTAL 14.9 g/dL; HEMOGLOBIN A1C 1.49 g/dL; HEMOGLOBIN A1C % 11.3 % (4.6-6.2)
[2019-03-10 10:11] LABS: CALCIUM 9.1 mg/dL (8.5-10.3); CREATININE 0.9 mg/dL (0.6-1.2)
== END 2019-03-10 09:12 | disposition home or self-care (01) ==
LOC: LAB 09:11
PROVIDERS: ATTEND Family Medicine
DX: E11.29 Type 2 diabetes mellitus with other diabetic kidney complication (principal); I48.91 Unspecified atrial fibrillation; G47.33 Obstructive sleep apnea (adult) (pediatric); I10 Essential (primary) hypertension; Z79.01 Long term (current) use of anticoagulants
CPT/HCPCS: 36415; 80048; 83036; 85025; 85610

== ENCOUNTER 2019-04-08 09:06 | Outpatient (CLI) | payer MEDICARE, OTHER | END 2019-04-08 09:07 | disposition home or self-care (01) | LOC: LAB 09:06 | PROVIDERS: ATTEND Family Medicine | DX: Z79.01 Long term (current) use of anticoagulants (principal); I48.91 Unspecified atrial fibrillation | CPT/HCPCS: 85610 ==

== ENCOUNTER 2019-05-02 08:01 | Outpatient (CLI) | payer MEDICARE, OTHER | END 2019-05-02 08:02 | disposition home or self-care (01) | LOC: LAB 08:01 | PROVIDERS: ATTEND Family Medicine | DX: Z79.01 Long term (current) use of anticoagulants (principal); I48.91 Unspecified atrial fibrillation | CPT/HCPCS: 85610 ==

== ENCOUNTER 2019-05-16 08:50 | Outpatient (CLI) | payer MEDICARE, OTHER | END 2019-05-16 08:51 | disposition home or self-care (01) | LOC: LAB 08:50 | PROVIDERS: ATTEND Family Medicine | DX: Z79.01 Long term (current) use of anticoagulants (principal); I48.91 Unspecified atrial fibrillation | CPT/HCPCS: 85610 ==

== ENCOUNTER 2019-06-16 08:28 | Outpatient (CLI) | payer MEDICARE, OTHER ==
[2019-06-16 08:44] LABS: BASOPHILS # (AUTO) 0.1 10^3/uL (0.0-0.1); BASOPHILS % (AUTO) 0.9 %; EOSINOPHILS # (AUTO) 0.2 10^3/uL (0.0-0.7); EOSINOPHILS % (AUTO) 2.1 %; HGB - HEMOGLOBIN 14.8 g/dL (14.0-18.0); LYMPHOCYTES # (AUTO) 2.9 10^3/uL (1.5-3.5); LYMPHOCYTES % (AUTO) 33.1 %; MEAN CORPUSCULAR HEMOGLOBIN 30.1 pg (27.0-31.0); MEAN CORPUSCULAR HGB CONC 32.7 g/dL (32.0-36.0); MEAN CORPUSCULAR VOLUME 91.9 fL (80.0-94.0); MEAN PLATELET VOLUME 10.8 fL (7.4-11.4); MONOCYTES # (AUTO) 0.8 10^3/uL (0.0-1.0); MONOCYTES % (AUTO) 9.2 %; NEUTROPHILS # (AUTO) 4.7 10^3/uL (1.5-6.6); NEUTROPHILS % (AUTO) 54.2 %; PLT - PLATELET COUNT 195 10^3/uL (130-450); RED BLOOD COUNT 4.92 10^6/uL (4.70-6.10); RED CELL DISTRIBUTION WIDTH 12.6 % (12.0-15.0); WHITE BLOOD COUNT 8.7 x10^3/uL (4.8-10.8)
[2019-06-16 08:51] LABS: CALCIUM 9.1 mg/dL (8.5-10.3)
[2019-06-16 08:52] LABS: INR 1.9 (0.8-1.2); PT - PROTHROMBIN TIME 21.3 secs (9.9-12.6)
[2019-06-16 09:01] LABS: HB2 TOTAL 15.5 g/dL; HEMOGLOBIN A1C 1.38 g/dL; HEMOGLOBIN A1C % 10.3 % (4.6-6.2)
== END 2019-06-16 08:29 | disposition home or self-care (01) ==
LOC: LAB 08:28
PROVIDERS: ATTEND Family Medicine
DX: E11.8 Type 2 diabetes mellitus with unspecified complications (principal); Z79.01 Long term (current) use of anticoagulants; I48.91 Unspecified atrial fibrillation; I10 Essential (primary) hypertension
CPT/HCPCS: 36415; 80048; 83036; 85025; 85610

== ENCOUNTER 2019-07-16 11:10 | Outpatient (CLI) | payer MEDICARE, OTHER ==
[2019-07-16 12:26] LABS: CALCIUM 9.1 mg/dL (8.5-10.3); CREATININE 0.9 mg/dL (0.6-1.2)
== END 2019-07-16 23:59 | disposition home or self-care (01) ==
LOC: LAB.WCP 11:10
PROVIDERS: ATTEND Family Medicine
DX: E11.9 Type 2 diabetes mellitus without complications (principal)
CPT/HCPCS: 36415; 80048

== ENCOUNTER 2019-08-13 10:28 | Outpatient (CLI) | payer MEDICARE, OTHER | END 2019-08-13 10:29 | disposition home or self-care (01) | LOC: LAB 10:28 | PROVIDERS: ATTEND Family Medicine | DX: I48.91 Unspecified atrial fibrillation (principal); Z79.01 Long term (current) use of anticoagulants | CPT/HCPCS: 85610 ==

== ENCOUNTER 2019-10-29 09:23 | Outpatient (CLI) | payer MEDICARE, OTHER | END 2019-10-29 09:24 | disposition home or self-care (01) | LOC: LAB 09:23 | PROVIDERS: ATTEND Family Medicine | DX: I48.91 Unspecified atrial fibrillation (principal); Z79.01 Long term (current) use of anticoagulants | CPT/HCPCS: 85610 ==

== ENCOUNTER 2019-11-25 08:22 | Emergency (ER) | payer MEDICARE, OTHER ==
--- NOTE | 2019-11-25 08:49 | ED Physician Documentation ---
PD HPI LOWER EXT INJURY - Stated complaint Stated Complaint: LT ANKLE INJ - Chief complaint Chief Complaint: Trauma Ext - History obtained from History obtained from: Patient - History of Present Illness PD HPI LOW EXT INJURY LOCATION: Left, Ankle Type of injury: Fall, Twist Where injury occurred: Home Timing - onset: Last night Timing - duration: Hours Timing - details: Abrupt onset, Still present Improved by: Rest, Ice, Immobilization Worsened by: Moving, Palpating Associated symptoms: Swelling. No: Weakness, Numbness, Tingling Contributing factors: Anticoagulated Similar symptoms before: Has not had sx before Recently seen: Not recently seen - Additional information Additional information: 84-year-old male was walking across his gravel driveway when he stepped wrong on a piece of gravel and twisted his left ankle. There is an inversion injury. The patient has pain to the lateral aspect of the ankle with swelling. He is able to bear some weight with a walking stick. He denies injury to his head or pain elsewhere. He is on coumadin for afib. He denies any recent or current illness and he last saw his PMD about 4 weeks ago for a routine visit. Review of Systems Constitutional: denies: Fever Eyes: denies: Decreased vision Ears: denies: Ear pain Nose: denies: Congestion Throat: denies: Sore throat Cardiac: denies: Chest pain / pressure Respiratory: denies: Dyspnea, Cough GI: denies: Vomiting Musculoskeletal: reports: Joint pain, Joint swelling, Pain with weight bearing Neurologic: denies: Generalized weakness, Focal weakness, Numbness PD PAST MEDICAL HISTORY - Past Medical History Past Medical History: Yes Cardiovascular: Hypertension, Atrial fibrillation Respiratory: None Neuro: Peripheral neuropathy Endocrine/Autoimmune: Type 2 diabetes GI: None : None HEENT: None Psych: None Musculoskeletal: Osteoarthritis Derm: None - Past Surgical History Past Surgical History: Yes General: Appendectomy Ortho: Arthroscopic surgery Cardiovascular: Other HEENT: Cataracts Derm: Skin cancer surgery - Present Medications Home Medications: Ambulatory Orders Medication Instructions Recorded Confirmed Lovastatin 40 mg PO DAILY 03/20/13 07/11/18 Metformin HCl [Metformin HCl ER] 500 mg PO BID 03/20/13 07/11/18 Warfarin [Coumadin] 5 - 10 mg PO DAILY 03/20/13 07/11/18 Metoprolol Tartrate 100 mg PO DAILY 10/07/16 07/11/18 lisinopriL [Lisinopril] 5 mg PO DAILY 10/07/16 07/11/18 Glimepiride 4 mg PO BID 04/29/18 07/11/18 Insulin NPH Human Isophane 12 unit SUBQ BID 05/29/18 07/11/18 [Novolin N] Amox/Clav 875/125 [Augmentin] 1 each PO Q12H #20 tablet 07/11/18 - Allergies Allergies/Adverse Reactions: Allergies Allergy/AdvReac Type Severity Reaction Status Date / Time No Known Drug Allergies Allergy Verified 11/25/19 08:33 - Social History Does the pt smoke?: No Smoking Status: Never smoker Does the pt drink ETOH?: No Does the pt have substance abuse?: No - Immunizations Immunizations are current?: Yes - POLST Patient has POLST: No PD ED PE NORMAL - Vitals Vital signs reviewed: Yes - General General: Alert and oriented X 3, No acute distress, Well developed/nourished - HEENT HEENT: Atraumatic, PERRL, EOMI - Respiratory Respiratory: No respiratory distress - Derm Derm: Normal color, Warm and dry, No rash - Extremities Extremities: Other (There is swelling and point tenderness to the lateral malleolus on the left side and over the talofibular ligament. There is no point tenderness to the medial aspect there is some mild swelling there is pain to flexion extension of the foot distal neurovascular components are intact.) - Neuro Neuro: Alert and oriented X 3, resource conservation specialist 2-12 intact, No motor deficit, No sensory deficit, Normal speech Eye Opening: Spontaneous Motor: Obeys Commands Verbal: Oriented GCS Score: 15 - Psych Psych: Normal mood, Normal affect Results - Vitals Vitals: Vital Signs - 24 hr 11/25/19 11/25/19 08:33 09:08 Temperature 37 C Heart Rate 62 79 Respiratory 18 18 Rate Blood Pressure 135/75 H 113/73 O2 Saturation 99 99 Oxygen O2 Source Room air - Labs Labs: Laboratory Tests 11/25/19 08:57 Whole Blood INR 2.8 H - Rads (name of study) ankle Radiology: Prelim report reviewed (Impression: 1. Mildly displaced spiral fracture of the distal fibular shaft with syndesmotic extension. There is suggestion of associated slight syndesmotic widening.2 Widening of the medial ankle joint mortise suggestive of ligamentous injury. 3Linear lucencies in the medial and posterior malleol), EMP read indepedently, See rad report PD MEDICAL DECISION MAKING - ED course Complexity details: reviewed old records, reviewed results, re-evaluated patient, considered differential, d/w patient ED course: 84-year-old male with a prior prior fracture to the right ankle requiring plates and screws has a fracture to his left ankle a spiral fracture of the distal fib xiomy with some widening of the mortise.He is placed into a walking boot and onto crutches and instructed to follow-up with orthopedics by telephone today for an appointment this week. Departure - Departure Disposition: 01 Home, Self Care Clinical Impression: Closed fracture of left distal fibula Qualifiers: Encounter type: initial encounter Fracture morphology: other fracture Qualified Code(s): S82.832A - Other fracture of upper and lower end of left fibula, initial encounter for closed fracture Condition: Stable Instructions: ED Fx Ankle Lateral Malleolus Follow-Up: Ren Singer MD [Primary Care Provider] - [facility] [Provider Group]
[2019-11-25 09:10] VITALS: BP 113/73
--- NOTE | 2019-11-25 09:11 | XRAY Report ---
PROCEDURE: Ankle 3 View LT INDICATIONS: lateral pain/swelling status post twisting injury TECHNIQUE: 3 views of the ankle were acquired. COMPARISON: None. FINDINGS: Bones: There is a mildly displaced spiral fracture of the distal fibular shaft. This extends to the distal tibiofibular syndesmosis with suggestion of associated slight widening. There are linear lucen cies within the medial and posterior malleoli which are nonspecific but nondisplaced fractures cannot be excluded. The ankle mortise demonstrates widening medially. Soft tissues: There is a small tibiotalar joint effusion. Periarticular soft tissue swelling is demon strated, most prominent laterally. IMPRESSION: 1. Mildly displaced spiral fracture of the distal fibular shaft with syndesmotic extension. There is suggestion of associated slight syndesmotic widening. 2. Widening of the medial ankle mortise suggestive of ligamentous injury. 3. Linear lucencies in the medial and posterior malleoli may reflect nondisplaced fractures. Reviewed by: Jamie Berger MD on 11/25/2019 9:10 AM PDT Approved by: Jamie Berger MD on 11/25/2019 9:10 AM PDT Station ID: [id number]
== END 2019-11-25 09:39 | disposition home or self-care (01) ==
LOC: ED 08:22
DX: S82.832A Other fracture of upper and lower end of left fibula, initial encounter for closed fracture (principal); X50.1XXA Overexertion from prolonged static or awkward postures, initial encounter; Y93.01 Activity, walking, marching and hiking; Y92.008 Other place in unspecified non-institutional (private) residence as the place of occurrence of the external cause; E11.42 Type 2 diabetes mellitus with diabetic polyneuropathy; Z79.4 Long term (current) use of insulin
CPT/HCPCS: 85610; 99284

== ENCOUNTER 2019-12-30 10:29 | Outpatient (CLI) | payer MEDICARE, OTHER | END 2019-12-30 10:30 | disposition home or self-care (01) | LOC: LAB 10:29 | PROVIDERS: ATTEND Family Medicine | DX: I48.91 Unspecified atrial fibrillation (principal); Z79.01 Long term (current) use of anticoagulants | CPT/HCPCS: 85610 ==

== ENCOUNTER 2020-01-09 11:57 | Outpatient (CLI) | payer MEDICARE, OTHER ==
--- NOTE | 2020-01-09 12:04 | XRAY Report ---
PROCEDURE: Ankle 3 View LT INDICATIONS: NONDISPLACED FX OF LATERAL MALLEOLUS OF L FIBULA TECHNIQUE: 3 views of the ankle were acquired. COMPARISON: 11/25/2019 FINDINGS: Bones: Distal left fibular fracture redemonstrated. Osseous resorption noted at the fracture site com patible with progression of healing. Minimal callus noted at the fracture site. Tibiotalar joint oste oarthritis and calcaneal bone spur incidentally noted. Soft tissues: No tibiotalar joint effusion. Achilles tendon appears normal. IMPRESSION: Distal left fibular fracture. Reviewed by: Helen Alvarenga MD, PhD on 01/09/2020 12:03 PM PDT Approved by: Helen Alvarenga MD, PhD on 01/09/2020 12:03 PM PDT Station ID: [id number]
== END 2020-01-09 23:59 | disposition home or self-care (01) ==
LOC: DI.WCP 11:57
PROVIDERS: ATTEND Physician Assistant
DX: S82.832D Other fracture of upper and lower end of left fibula, subsequent encounter for closed fracture with routine healing (principal)

== ENCOUNTER 2020-04-14 10:57 | Outpatient (CLI) | payer MEDICARE, OTHER | END 2020-04-14 10:58 | disposition home or self-care (01) | LOC: LAB 10:57 | PROVIDERS: ATTEND Family Medicine | DX: Z79.01 Long term (current) use of anticoagulants (principal); I48.91 Unspecified atrial fibrillation | CPT/HCPCS: 85610 ==

== ENCOUNTER 2021-11-26 10:00 | Emergency (ER) | payer MEDICARE, OTHER ==
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
[2021-11-26 10:49] LABS: BASOPHILS # (AUTO) 0.1 10^3/uL (0.0-0.1); BASOPHILS % (AUTO) 0.7 %; EOSINOPHILS # (AUTO) 0.2 10^3/uL (0.0-0.7); HCT - HEMATOCRIT 41.6 % (42.0-52.0); HGB - HEMOGLOBIN 13.9 g/dL (14.0-18.0); LYMPHOCYTES # (AUTO) 2.4 10^3/uL (1.5-3.5); LYMPHOCYTES % (AUTO) 34.5 %; MEAN CORPUSCULAR HEMOGLOBIN 30.2 pg (27.0-31.0); MEAN CORPUSCULAR HGB CONC 33.4 g/dL (32.0-36.0); MEAN CORPUSCULAR VOLUME 90.2 fL (80.0-94.0); MEAN PLATELET VOLUME 10.3 fL (7.4-11.4); MONOCYTES # (AUTO) 0.6 10^3/uL (0.0-1.0); MONOCYTES % (AUTO) 8.5 %; NEUTROPHILS # (AUTO) 3.7 10^3/uL (1.5-6.6); NEUTROPHILS % (AUTO) 52.9 %; PLT - PLATELET COUNT 178 10^3/uL (130-450); RED BLOOD COUNT 4.61 10^6/uL (4.70-6.10); RED CELL DISTRIBUTION WIDTH 13.1 % (12.0-15.0); WHITE BLOOD COUNT 6.9 x10^3/uL (4.8-10.8)
--- NOTE | 2021-11-26 10:49 | CT Report ---
PROCEDURE: HEAD WO INDICATIONS: Head injury, neck pain, anticoagulated TECHNIQUE: Noncontrast 4.5 mm thick angled axial sections acquired from the foramen magnum to the vertex. For r adiation dose reduction, the following was used: automated exposure control, adjustment of mA and/or kV according to patient size. COMPARISON: Correlation is made with the accompanying cervical spine CT, 11/26/2021. FINDINGS: Image quality: Excellent. CSF spaces: Basal cisterns are patent. No extra-axial fluid collections. Ventricles are normal in size and shape. Brain: Along the lateral posterior aspect of the right cerebellum, there is a mass seen that is diana eved to be extra-axial and demonstrates central calcification as well as rim calcification that measu res 2.3 x 1.4 cm in greatest axial dimension, with a craniocaudal extent of 1.7 cm. This is seen just below the tentorium. Mass effect can be seen upon the cerebellum itself. This mass is seen immediate ly adjacent to the transverse sinus, yet separate from it. No midline shift. No intracranial hemorrhage. Esposito-white matter interface is normal. Skull and face: Calvarium and visualized facial bones are intact, without suspicious lesions. Sinuses: Visualized sinuses and mastoids are clear. IMPRESSION: No acute abnormality is seen. No intracranial hemorrhage is seen. There is a 2.3 cm rim calcified extra-axial mass seen along the posterior lateral aspect of the right cerebellum, with central calcification also seen. This almost certainly represents a meningioma. - When clinically appropriate, please consider dedicated brain MRI (without and with contrast) for f urther evaluation (assuming that there is no contraindication). Reviewed by: Kalin Bagley MD on 11/26/2021 9:47 AM SARI Approved by: Kalin Bagley MD on 11/26/2021 9:47 AM SARI Station ID: [id number]
--- NOTE | 2021-11-26 10:52 | CT Report ---
PROCEDURE: CERVICAL SPINE WO INDICATIONS: Head injury, neck pain, anticoagulated TECHNIQUE: Noncontrast 3 mm thick sections acquired from the skull base to the T4 level. Sagittal and coronal r eformats were then constructed. For radiation dose reduction, the following was used: automated exp osure control, adjustment of mA and/or kV according to patient size. COMPARISON: Correlation is made with the accompanying head CT, 11/26/2021. Correlation is also made w ith report only from prior cervical spine MRI, 01/19/2011. FINDINGS: Image quality: This study is limited by quantum mottle artifact. Bones: No fractures or dislocations. Visualized superior ribs are intact. Focal degenerative change can also be seen involving the C1-C2 interface anteriorly. There is moderat e to severe disc space narrowing seen at C5-C6, C6-C7, and C7-T1. Bridging anterior osteophytes are s een at C5-C7. Posteriorly directed endplate osteophytes are seen, which are overall worst at C6-C7. Degenerative changes are seen elsewhere, including involving the visualized upper thoracic spine and the costovertebral junctions. Soft tissues: There is partial visualization of a 2.7 cm extra-axial mass involving the posterolater al aspect of the right posterior cerebral hemisphere. Prevertebral soft tissues are normal in thickness. No paravertebral hematomas. No apical pneumothor aces. IMPRESSION: Negative for acute fracture. Cervical spine degenerative changes are seen, which are worst inferiorly. Partial visualization of a presumed 2.7 cm meningioma involving the posterior aspect of the right pos terior cranial fossa. Reviewed by: Kalin Bagley MD on 11/26/2021 9:50 AM SARI Approved by: Kalin Bagley MD on 11/26/2021 9:50 AM SARI Station ID: [id number]
[2021-11-26 10:58] LABS: CALCIUM 9.2 mg/dL (8.5-10.3); CREATININE 0.8 mg/dL (0.6-1.2); POTASSIUM 4.3 mmol/L (3.5-5.0)
[2021-11-26 11:08] VITALS: BP 120/64
== END 2021-11-26 11:10 | disposition home or self-care (01) ==
LOC: ED 10:00
DX: S06.0X0A Concussion without loss of consciousness, initial encounter (principal); W18.30XA Fall on same level, unspecified, initial encounter; I48.91 Unspecified atrial fibrillation; Z79.01 Long term (current) use of anticoagulants; E11.21 Type 2 diabetes mellitus with diabetic nephropathy; Z79.84 Long term (current) use of oral hypoglycemic drugs
CPT/HCPCS: 36415; 80048; 85025; 99282; 99284

== ENCOUNTER 2022-02-04 16:54 | Outpatient (CLI) | payer MEDICARE, OTHER | END 2022-02-04 16:55 | disposition critical access hospital (66) | LOC: EMS 16:54 | DX: M25.552 Pain in left hip (principal); W01.0XXA Fall on same level from slipping, tripping and stumbling without subsequent striking against object, initial encounter; Y93.01 Activity, walking, marching and hiking; Y92.008 Other place in unspecified non-institutional (private) residence as the place of occurrence of the external cause | CPT/HCPCS: A0425; A0427 ==

== ENCOUNTER 2022-02-04 17:05 | Inpatient (IN) | payer MEDICARE, OTHER ==
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
[2022-02-04 17:26] LABS: BASOPHILS # (AUTO) 0.1 10^3/uL (0.0-0.1); BASOPHILS % (AUTO) 0.5 %; EOSINOPHILS # (AUTO) 0.2 10^3/uL (0.0-0.7); EOSINOPHILS % (AUTO) 1.5 %; HCT - HEMATOCRIT 42.1 % (42.0-52.0); HGB - HEMOGLOBIN 13.7 g/dL (14.0-18.0); LYMPHOCYTES # (AUTO) 3.5 10^3/uL (1.5-3.5); LYMPHOCYTES % (AUTO) 27.1 %; MEAN CORPUSCULAR HEMOGLOBIN 29.6 pg (27.0-31.0); MEAN CORPUSCULAR HGB CONC 32.5 g/dL (32.0-36.0); MEAN CORPUSCULAR VOLUME 90.9 fL (80.0-94.0); MONOCYTES # (AUTO) 0.9 10^3/uL (0.0-1.0); MONOCYTES % (AUTO) 6.6 %; NEUTROPHILS # (AUTO) 8.2 10^3/uL (1.5-6.6); NEUTROPHILS % (AUTO) 63.4 %; PLT - PLATELET COUNT 196 10^3/uL (130-450); RED BLOOD COUNT 4.63 10^6/uL (4.70-6.10); RED CELL DISTRIBUTION WIDTH 12.7 % (12.0-15.0)
[2022-02-04 17:41] LABS: ALBUMIN 4.3 g/dL (3.2-5.5); ALBUMIN/GLOBULIN RATIO 1.9 (1.0-2.2); BILIRUBIN,TOTAL 1.3 mg/dL (0.2-1.0); CALCIUM 9.1 mg/dL (8.5-10.3); CREATININE 0.9 mg/dL (0.6-1.2); TOTAL PROTEIN 6.6 g/dL (6.7-8.2)
[2022-02-04] MEDS ORDERED: SODIUM CHLORIDE 0.9% 1,000 ML IV STA (17:48)
[2022-02-04] MEDS ORDERED: HYDROmorphone 1 MG/ML CARPUJECT IVP STA (17:48)
[2022-02-04] MEDS ORDERED: ONDANSETRON 4 MG/2 ML VIAL IVP STA (17:48)
[2022-02-04 17:49] LABS: INR 1.2 (0.8-1.2); PT - PROTHROMBIN TIME 13.4 secs (9.9-12.6)
[2022-02-04 17:56] LABS: PARTIAL THROMBOPLASTIN TIME 26.4 secs (24.9-33.3)
--- NOTE | 2022-02-04 18:00 | CT Report ---
PROCEDURE: CT brain without contrast INDICATIONS: fall, head injury pt on eliquis TECHNIQUE: Noncontrast 4.5 mm thick angled axial sections acquired from the foramen magnum to the vertex. For r adiation dose reduction, the following was used: automated exposure control, adjustment of mA and/or kV according to patient size. COMPARISON: None. FINDINGS: Image quality: Excellent. CSF spaces: Basal cisterns are patent. No extra-axial fluid collections. Ventricles are normal in size and shape. Brain: No midline shift. No intracranial masses or hemorrhage. Esposito-white matter interface is norm al. Generalized atrophy and chronic ischemic change present. No extra-axial calcified mass lesion in the right posterior fossa is again noted, stable. Vascular calcification the cavernous portions of both internal carotid artery noted Skull and face: Calvarium and visualized facial bones are intact, without suspicious lesions. Sinuses: Visualized sinuses and mastoids are clear. IMPRESSION: 1. Atrophy and chronic ischemic change without intracranial hemorrhage or mass effect, 2. Calcified extra-axial mass lesion in the right posterior fossa consistent with meningioma, stable from the prior. Follow-up contrast MR confirmation advised. Reviewed by: Herve Hussein MD on 02/04/2022 4:59 PM [email or web address] Approved by: Herve Hussein MD on 02/04/2022 4:59 PM AKDT Station ID: [id number]
--- NOTE | 2022-02-04 18:01 | XRAY Report ---
PROCEDURE: Hip w/Pelvis 2-3V LT INDICATIONS: fall, L hip pain TECHNIQUE: AP pelvis with lateral view(s) of the left hip(s). COMPARISON: None. FINDINGS: Bones: Nondisplaced intertrochanteric left proximal femoral fracture extends through the lesser troch anter and the base of the femoral neck. The left hemipelvis appears intact. Soft tissues: The visualized bowel gas pattern is normal. No suspicious soft tissue calcifications. IMPRESSION: Nondisplaced left intratrochanteric femoral fracture Reviewed by: Herve Hussein MD on 02/04/2022 5:00 PM SARI Approved by: Herve Hussein MD on 02/04/2022 5:00 PM SARI Station ID: [id number]
--- NOTE | 2022-02-04 18:02 | XRAY Report ---
PROCEDURE: Chest 1 View X-Ray INDICATIONS: hip fx, pre-op TECHNIQUE: One view of the chest was acquired. COMPARISON: 02/04/2015 FINDINGS: Surgical changes and devices: None. Lungs and pleura: No pleural effusions or pneumothorax. Lungs are clear. Mediastinum: Mediastinal contours appear normal. Heart size is enlarged. Bones and chest wall: No suspicious bony lesions. Overlying soft tissues appear unremarkable. IMPRESSION: No acute cardiopulmonary pathology. Reviewed by: Angel Brennan MD on 02/04/2022 6:01 PM PDT Approved by: Angel Brennan MD on 02/04/2022 6:01 PM PDT Station ID: [id number]
[2022-02-04 19:17] LABS: B. PARAPERTUSSIS- RESP PCR PAN NOT DETECTED; B. PERTUSSIS- RESP PCR PANEL NOT DETECTED; C. PNEUMONIAE- RESP PCR PANEL NOT DETECTED; CORONAVIRUS 229E-RESP PCR NOT DETECTED; CORONAVIRUS HKU1-RESP PCR NOT DETECTED; CORONAVIRUS NL63-RESP PCR NOT DETECTED; CORONAVIRUS OC43-RESP PCR NOT DETECTED; HUMAN METAPNEUMOVIRUS NOT DETECTED; INFLUENZA A- RESP PCR PANEL NOT DETECTED; INFLUENZA B - RESP PCR PANEL NOT DETECTED; M. PNEUMONIAE- RESP PCR PANEL NOT DETECTED; PARAINFLUENZA VIRUS 1 NOT DETECTED; PARAINFLUENZA VIRUS 2 NOT DETECTED; PARAINFLUENZA VIRUS 3 NOT DETECTED; PARAINFLUENZA VIRUS 4 NOT DETECTED; RHINOVIRUS/ENTEROVIRUS NOT DETECTED; RSV- RESP PCR PANEL NOT DETECTED; SARS-CoV-2 -RESP PCR PANEL NOT DETECTED
[2022-02-04] MEDS ORDERED: diazePAM INJ 5 MG/ML SYRINGE IVP STA (21:00)
[2022-02-04] MEDS ORDERED: ONDANSETRON 4 MG/2 ML VIAL IVP PRN (23:14)
[2022-02-04] MEDS ORDERED: MORPHINE 2 MG/ML CARPUJECT IVP PRN (23:14)
[2022-02-04] MEDS ORDERED: SODIUM CHLORIDE FLUSH 0.9% 10 ML SYRINGE IVP PRN (23:14)
--- NOTE | 2022-02-04 23:32 | HISTORY & PHYSICAL EXAMINATION ---
Chief Complaint - Chief Complaint Chief Complaint: Left hip pain History of Present Illness - History of Present Illness HPI Comment/Other: 85 y old male with PMH DM 2, A fib on [facility], BIB due to fall and left hip pain. As per pt,he tripped and fell.Denies head injury or LOC. Denies fever, cough, chest pain, nausea, vomiting, abdominal pain, diarrhea, constipation, symptoms. On prensentaion, pt was afebrile. Labs showed leukocytosis COVID neg CXR no acute findings X ray left hip showed non-displaced intertrochenteric fracture of left femur. As per ER physician, Dr Burns, He consulted with Ortho pedic nca certified concierge who recommended ORIF in am Pt is being admitted due to left hip fracture History - Past Medical History Cardiovascular: reports: Hypertension, Atrial fibrillation Respiratory: reports: None Neuro: reports: Peripheral neuropathy Endocrine/Autoimmune: reports: Type 2 diabetes GI: reports: None : reports: None HEENT: reports: None Psych: reports: None Musculoskeletal: reports: Osteoarthritis Derm: reports: None MRSA Hx?: No - Past Surgical History General: reports: Appendectomy Ortho: reports: Arthroscopic surgery Cardiovascular: reports: Other HEENT: reports: Cataracts Derm: reports: Skin cancer surgery - POLST Patient has POLST: No Meds/Allgy - Home Medications Home Medications: Ambulatory Orders Medication Instructions Recorded Confirmed Lovastatin 40 mg PO DAILY PM 03/20/13 02/04/22 Metformin HCl [Metformin HCl ER] 1,000 mg PO BID 03/20/13 02/04/22 Metoprolol Tartrate 100 mg PO DAILY PM 10/07/16 02/04/22 lisinopriL [Lisinopril] 5 mg PO DAILY 10/07/16 02/04/22 Glimepiride 4 mg PO BID 04/29/18 02/04/22 Apixaban [Eliquis] 5 mg ORAL BID 02/04/22 02/04/22 Insulin Glargine [Lantus Solostar] 22 units SQ DAILY 02/04/22 02/04/22 - Allergies Allergies/Adverse Reactions: Allergies Allergy/AdvReac Type Severity Reaction Status Date / Time No Known Drug Allergies Allergy Verified 02/04/22 17:15 Review of Systems - Musculoskeletal Musculoskeletal: reports: Joint pain - Other Findings Other Findings: 12 points systems were reviewed and were negative except metioned in HPI Exam - Vital Signs Vital Signs: Vital Signs x48h Temp Pulse Resp BP Pulse Ox 02/04/22 18:01 102 H 18 125/101 H 94 02/04/22 17:15 35.8 C L 96 20 133/86 H 99 - Physical Exam General Appearance: positive: No acute distress, Alert Eyes Bilateral: positive: Normal inspection ENT: positive: ENT inspection nml Neck: positive: Nml inspection Respiratory: positive: Chest non-tender, No respiratory distress, Breath sounds nml Cardiovascular: positive: Irregularly irregular Abdomen: positive: Non-tender, Nml bowel sounds Skin: positive: No rash Extremities: positive: No pedal edema Neurologic/Psychiatric: positive: Oriented x3, Motor nml Conclusion/Plan - Lab Results Fish Bones: 02/04/22 17:18 02/04/22 17:18 - Other Other Results/Comments: A: Non-displaced intertrochenteric fracture of left femur HTN DM2 A fib Leukocytosis Plan: Admit Med Surg NPO NS @ 100 cc/h Morphine iv prn As per ER physician ( Dr Burns), Ortho nca certified concierge was consulted who recommended ORIF Sliding scale insulin Eliquis on hold Repeat CBC, BMP in am DVT prophylaxic: SCD Full code Pt will be admitted as inpatient as more than 2 midnight stay is expected
[2022-02-04] MEDS ORDERED: SODIUM CHLORIDE 0.9% 1,000 ML IV SCH (23:45)
[2022-02-05] MEDS: SODIUM CHLORIDE FLUSH 0.9% 10 ML SYRINGE IVP SCH ×3 (00:56→17:16)
[2022-02-05] MEDS: INSULIN REGULAR HUMAN 300 UNIT/3 ML VIAL SUBQ SCH ×4 (01:08→18:26)
[2022-02-05 08:32] LABS: BASOPHILS # (AUTO) 0.1 10^3/uL (0.0-0.1); BASOPHILS % (AUTO) 0.6 %; EOSINOPHILS # (AUTO) 0.3 10^3/uL (0.0-0.7); EOSINOPHILS % (AUTO) 2.6 %; HCT - HEMATOCRIT 40.3 % (42.0-52.0); HGB - HEMOGLOBIN 13.1 g/dL (14.0-18.0); LYMPHOCYTES % (AUTO) 16.4 %; MEAN CORPUSCULAR HEMOGLOBIN 29.4 pg (27.0-31.0); MEAN CORPUSCULAR HGB CONC 32.5 g/dL (32.0-36.0); MEAN CORPUSCULAR VOLUME 90.4 fL (80.0-94.0); MEAN PLATELET VOLUME 9.6 fL (7.4-11.4); MONOCYTES % (AUTO) 8.5 %; NEUTROPHILS # (AUTO) 8.8 10^3/uL (1.5-6.6); NEUTROPHILS % (AUTO) 71.4 %; PLT - PLATELET COUNT 170 10^3/uL (130-450); RED BLOOD COUNT 4.46 10^6/uL (4.70-6.10); RED CELL DISTRIBUTION WIDTH 12.9 % (12.0-15.0); WHITE BLOOD COUNT 12.3 x10^3/uL (4.8-10.8)
[2022-02-05 08:45] LABS: CALCIUM 8.5 mg/dL (8.5-10.3); CREATININE 0.8 mg/dL (0.6-1.2); POTASSIUM 3.6 mmol/L (3.5-5.0)
[2022-02-05] MEDS ORDERED: LIDOCAINE 2% URO-JET 5 ML SYRINGE UR ONE (08:47)
[2022-02-05] MEDS ORDERED: D5NS W/20 MEQ KCL 1,000 ML IV SCH (09:00)
--- NOTE | 2022-02-05 10:27 | HISTORY & PHYSICAL EXAMINATION ---
HPI - History Obtained From History obtained from: Patient, Other Exam limitations: No limitations - History of Present Illness HPI Comment/Other: This is a 87-year-old gentleman, retired from construction. He is in the process of moving from [place] to [place]. He was moving items, walking outside through a gait when the gate hit him, causing him to fall on his left side. He had immediate pain and difficulty bearing any weight on left leg. He was brought to the hospital and admitted last night by her hospitalist with orthopedic consultation. He is normally ambulatory. He denies previous pain to left hip. He is . He has lived on the [place] for many years but is now moving. He uses a a cane to normally ambulate. He has no other complaints of pain. He denies chest pain, shortness of breath, dizziness, syncope associated with fall. He has no other areas of pain other than the left upper thigh. He is relatively comfortable at bedrest since admission to hospital.He does have a history of [id number] diabetes and atrial fibrillation. PMH/PSH - Past Medical History Cardiovascular: positive: Hypertension, Atrial fibrillation Respiratory: positive: None Neuro: positive: Peripheral neuropathy Endocrine/Autoimmune: positive: Type 2 diabetes GI: positive: None : positive: None HEENT: positive: None Psych: positive: None Musculoskeletal: positive: Osteoarthritis Derm: positive: None MRSA Hx?: No - Past Surgical History General: positive: Appendectomy Ortho: positive: Arthroscopic surgery Cardiovascular: positive: Other HEENT: positive: Cataracts Derm: positive: Skin cancer surgery Social & Family Hx - Social History Does the pt smoke?: No Smoking Status: Former smoker Does the pt drink ETOH?: No Does the pt have substance abuse?: No - POLST Patient has POLST: No Meds/Allgy - Home Medications Home Medications: Ambulatory Orders Medication Instructions Recorded Confirmed Lovastatin 40 mg PO DAILY PM 03/20/13 02/04/22 Metformin HCl [Metformin HCl ER] 1,000 mg PO BID 03/20/13 02/04/22 Metoprolol Tartrate 100 mg PO DAILY PM 10/07/16 02/04/22 lisinopriL [Lisinopril] 5 mg PO DAILY 10/07/16 02/04/22 Glimepiride 4 mg PO BID 04/29/18 02/04/22 Apixaban [Eliquis] 5 mg ORAL BID 02/04/22 02/04/22 Insulin Glargine [Lantus Solostar] 22 units SQ DAILY 02/04/22 02/04/22 - Allergies Allergies/Adverse Reactions: Allergies Allergy/AdvReac Type Severity Reaction Status Date / Time No Known Drug Allergies Allergy Verified 02/04/22 17:15 Exam - Vital Signs Vital Signs: Vital Signs x48h Temp Pulse Resp BP Pulse Ox 02/05/22 07:44 36.7 C 87 18 119/60 98 - Physical Exam General Appearance: positive: Mild distress Peripheral Pulses: positive: 2+ Abdomen: positive: Non-tender Skin: positive: Color nml Neurologic/Psychiatric: positive: Oriented x3, Motor nml, Sensation nml Comments/Other: The left lower extremity has painful and limited movement, passive motion causes pain left hip and upper thigh. There is minimal clinical deformity left leg. Skin is intact. There is no hematoma to left hip. Neurovascular is intact all 4 extremities. Upper extremities and right lower extremity do not show any definite abnormality from injury. Results - Lab Results Fish Bones: 02/05/22 08:27 02/05/22 08:27 Other Lab Results: Lab Results x24hrs 02/05/22 02/05/22 02/04/22 Range/Units 08:27 08:27 17:45 WBC 12.3 H (4.8-10.8) x10^3/uL RBC 4.46 L (4.70-6.10) 10^6/uL Hgb 13.1 L (14.0-18.0) g/dL Hct 40.3 L (42.0-52.0) % MCV 90.4 (80.0-94.0) fL MCH 29.4 (27.0-31.0) pg MCHC 32.5 (32.0-36.0) g/dL RDW 12.9 (12.0-15.0) % Plt Count 170 (130-450) 10^3/uL MPV 9.6 (7.4-11.4) fL Neut # (Auto) 8.8 H (1.5-6.6) 10^3/uL Lymph # (Auto) 2.0 (1.5-3.5) 10^3/uL [place] # (Auto) 1.0 (0.0-1.0) 10^3/uL Eos # (Auto) 0.3 (0.0-0.7) 10^3/uL Baso # (Auto) 0.1 (0.0-0.1) 10^3/uL Absolute Nucleated RBC 0.00 x10^3/uL Nucleated RBC % 0.0 /100WBC PT (9.9-12.6) secs INR (0.8-1.2) APTT (24.9-33.3) secs Sodium 137 (135-145) mmol/L Potassium 3.6 (3.5-5.0) mmol/L Chloride 103 (101-111) mmol/L Carbon Dioxide 25 (21-32) mmol/L Anion Gap 9.0 (6-13) BUN 15 (6-20) mg/dL Creatinine 0.8 (0.6-1.2) mg/dL Estimated GFR (MDRD) 91 (>89) Glucose 153 H (70-100) mg/dL Calcium 8.5 (8.5-10.3) mg/dL Total Bilirubin (0.2-1.0) mg/dL AST (10-42) IU/L ALT (10-60) IU/L Alkaline Phosphatase (42-121) IU/L Total Protein (6.7-8.2) g/dL Albumin (3.2-5.5) g/dL Globulin (2.1-4.2) g/dL Albumin/Globulin Ratio (1.0-2.2) Nasal Adenovirus (PCR) NOT DETECTED Nasal B. parapertussis DNA (PCR) NOT DETECTED Nasal Coronavir 229E PCR NOT DETECTED Nasal Coronavir HKU1 PCR NOT DETECTED Nasal Coronavir NL63 PCR NOT DETECTED Nasal Coronavir OC43 PCR NOT DETECTED Nasal Enterovir/Rhinovir PCR NOT DETECTED Nasal Influenza B PCR NOT DETECTED Nasal Influenza A PCR NOT DETECTED Nasal Parainfluen 1 PCR NOT DETECTED Nasal Parainfluen 2 PCR NOT DETECTED Nasal Parainfluen 3 PCR NOT DETECTED Nasal Parainfluen 4 PCR NOT DETECTED Nasal RSV (PCR) NOT DETECTED Nasal B.pertussis DNA PCR NOT DETECTED Nasal C.pneumoniae (PCR) NOT DETECTED Lux Human Metapneumo PCR NOT DETECTED Nasal M.pneumoniae (PCR) NOT DETECTED Nasal SARS-CoV-2 (PCR) NOT DETECTED 11/08/2102/04/22 02/04/22 Range/Units 17:18 17:18 17:18 WBC 13.0 H (4.8-10.8) x10^3/uL RBC 4.63 L (4.70-6.10) 10^6/uL Hgb 13.7 L (14.0-18.0) g/dL Hct 42.1 (42.0-52.0) % MCV 90.9 (80.0-94.0) fL MCH 29.6 (27.0-31.0) pg MCHC 32.5 (32.0-36.0) g/dL RDW 12.7 (12.0-15.0) % Plt Count 196 (130-450) 10^3/uL MPV 10.0 (7.4-11.4) fL Neut # (Auto) 8.2 H (1.5-6.6) 10^3/uL Lymph # (Auto) 3.5 (1.5-3.5) 10^3/uL [place] # (Auto) 0.9 (0.0-1.0) 10^3/uL Eos # (Auto) 0.2 (0.0-0.7) 10^3/uL Baso # (Auto) 0.1 (0.0-0.1) 10^3/uL Absolute Nucleated RBC 0.00 x10^3/uL Nucleated RBC % 0.0 /100WBC PT 13.4 H (9.9-12.6) secs INR 1.2 (0.8-1.2) APTT 26.4 (24.9-33.3) secs Sodium 138 (135-145) mmol/L Potassium 4.0 (3.5-5.0) mmol/L Chloride 105 (101-111) mmol/L Carbon Dioxide 25 (21-32) mmol/L Anion Gap 8.0 (6-13) BUN 18 (6-20) mg/dL Creatinine 0.9 (0.6-1.2) mg/dL Estimated GFR (MDRD) 80 L (>89) Glucose 170 H (70-100) mg/dL Calcium 9.1 (8.5-10.3) mg/dL Total Bilirubin 1.3 H (0.2-1.0) mg/dL AST 20 (10-42) IU/L ALT 22 (10-60) IU/L Alkaline Phosphatase 51 (42-121) IU/L Total Protein 6.6 L (6.7-8.2) g/dL Albumin 4.3 (3.2-5.5) g/dL Globulin 2.3 (2.1-4.2) g/dL Albumin/Globulin Ratio 1.9 (1.0-2.2) Nasal Adenovirus (PCR) Nasal B. parapertussis DNA (PCR) Nasal Coronavir 229E PCR Nasal Coronavir HKU1 PCR Nasal Coronavir NL63 PCR Nasal Coronavir OC43 PCR Nasal Enterovir/Rhinovir PCR Nasal Influenza B PCR Nasal Influenza A PCR Nasal Parainfluen 1 PCR Nasal Parainfluen 2 PCR Nasal Parainfluen 3 PCR Nasal Parainfluen 4 PCR Nasal RSV (PCR) Nasal B.pertussis DNA PCR Nasal C.pneumoniae (PCR) Lux Human Metapneumo PCR Nasal M.pneumoniae (PCR) Nasal SARS-CoV-2 (PCR) - Diagnostic Imaging Results Diagnostic Imaging Results: negative: Read independently (Minimally displaced intertrochanteric fracture left hip) Impression/Plan - Problem List Problem List: 1. Intertrochanteric fracture left hip 2. Diabetes mellitus, [id number] 3. Atrial fibrillation I discussed the pros and cons of treatment with the patient, he is in agreement to open reduction internal fixation of the left hip intertrochanteric fracture. This will consist of a pat and hip screw. I discussed the risk, goals and likelihood of achieving goals, alternatives of surgery and their consequences, disability and occasionally . The patient has been seen by her hospitalist who states that there are no contraindications to proceeding to surgery. Matter how this fracture is treated there is significant morbidity and mortality associated with this injury during the first year after injury.
[2022-02-05] MEDS: oxyCODONE 5 MG TABLET PO PRN (10:41)
--- NOTE | 2022-02-05 11:31 | PHARMACY PROGRESS NOTE ---
- Best Possible Medication History Admit Date and Time: 02/04/22 1713 Processed by: Pharmacy Medication History completed: In progress (need to call Dr. Alfredo on 02/05/22 to verify meds carrie insulin) As the person ultimately responsible for medication therapy, providers are able to order a medication from an existing home medication list in [facility] via the "Reconcile Routine" prior to Confirmation of that medication by computer support technician. Such practice is discouraged except when the physician, in their clinical judgment, deems that a medical need exists for a medication without regard to previous use.
[2022-02-05] MEDS ORDERED: MIDAZOLAM 2 MG/2 ML VIAL ONE (13:09)
[2022-02-05] MEDS ORDERED: PROPOFOL 200 MG/20 ML VIAL IVP ONE (13:10)
[2022-02-05] MEDS ORDERED: fentaNYL 100 MCG/2 ML VIAL ONE (13:10)
[2022-02-05] MEDS ORDERED: DEXAMETHASONE 4 MG/ML VIAL ONE (13:11)
[2022-02-05] MEDS ORDERED: ROPIVACAINE 0.5% PF 20 ML VIAL ONE (13:11)
[2022-02-05] MEDS ORDERED: SODIUM CHLORIDE 0.9% 10 ML VIAL IVP ONE (13:11)
--- NOTE | 2022-02-05 15:05 | ANESTHESIA ---
Pre-Anesthesia VS, & Labs - Diagnosis L hip fracture - Procedure ORIF L hip Vital Signs: Temp Pulse Resp BP Pulse Ox O2 Flow Rate 36.7 C 87 18 119/60 98 02/05/22 07:44 02/05/22 07:44 02/05/22 07:44 02/05/22 07:44 02/05/22 07:44 Height: 6 ft 1 in Weight (kg): 105 kg Body Mass Index: 30.5 BMI Classification: Obese - NPO >8 hours - Lab Results Current Lab Results: Laboratory Tests 02/05/22 08:27: Sodium 137, Potassium 3.6, Chloride 103, Carbon Dioxide 25, Anion Gap 9.0, BUN 15, Creatinine 0.8, Estimated GFR (MDRD) 91, Glucose 153 H, Calcium 8.5 02/05/22 08:27: WBC 12.3 H, RBC 4.46 L, Hgb 13.1 L, Hct 40.3 L, MCV 90.4, MCH 29.4, MCHC 32.5, RDW 12.9, Plt Count 170, MPV 9.6, Neut # (Auto) 8.8 H, Lymph # (Auto) 2.0, [place] # (Auto) 1.0, Eos # (Auto) 0.3, Baso # (Auto) 0.1, Absolute Nucleated RBC 0.00, Nucleated RBC % 0.0 02/04/22 17:18: Sodium 138, Potassium 4.0, Chloride 105, Carbon Dioxide 25, Anion Gap 8.0, BUN 18, Creatinine 0.9, Estimated GFR (MDRD) 80 L, Glucose 170 H, Calcium 9.1, Total Bilirubin 1.3 H, AST 20, ALT 22, Alkaline Phosphatase 51, Total Protein 6.6 L, Albumin 4.3, Globulin 2.3, Albumin/Globulin Ratio 1.9 02/04/22 17:18: PT 13.4 H, INR 1.2, APTT 26.4 02/04/22 17:18: WBC 13.0 H, RBC 4.63 L, Hgb 13.7 L, Hct 42.1, MCV 90.9, MCH 29.6, MCHC 32.5, RDW 12.7, Plt Count 196, MPV 10.0, Neut # (Auto) 8.2 H, Lymph # (Auto) 3.5, [place] # (Auto) 0.9, Eos # (Auto) 0.2, Baso # (Auto) 0.1, Absolute Nucleated RBC 0.00, Nucleated RBC % 0.0 Fish Bones: 02/05/22 08:27 02/05/22 08:27 Home Medications and Allergies Home Medications: Ambulatory Orders Apixaban [Eliquis] 5 mg ORAL BID 02/04/22 Insulin Glargine [Lantus Solostar] 22 units SQ DAILY 02/04/22 Active Medications Potassium Chloride/Dextrose/Sod Cl (D5ns W/20 Meq Kcl) 1,000 mls @ 83.333 mls/hr IV .Q12H [facility] Last Admin: 02/05/22 08:49 Dose: 83.333 mls/hr Insulin Human Regular (Insulin Regular Human 300 Unit/3 Ml Vial) 2 - 10 unit SUBQ Q6HR [facility]; Protocol Last Admin: 02/05/22 11:44 Dose: Not Given Morphine Sulfate (Morphine 2 Mg/Ml Carpuject) 2 mg IVP Q4H PRN PRN Reason: Pain 8 to 10 Last Admin: 02/05/22 01:15 PDT Dose: 2 mg Ondansetron HCl (Ondansetron 4 Mg/2 Ml Vial) 4 mg IVP Q6HR PRN PRN Reason: Nausea / Vomiting Oxycodone HCl (Oxycodone 5 Mg Tablet) 5 mg PO Q4HR PRN PRN Reason: PAIN Last Admin: 02/05/22 10:41 Dose: 5 mg Sodium Chloride (Sodium Chloride Flush 0.9% 10 Ml Syringe) 10 ml IVP PRN PRN PRN Reason: NEEDED PER PROVIDER ORDERS Sodium Chloride (Sodium Chloride Flush 0.9% 10 Ml Syringe) 10 ml IVP 0100,0 900,1700 [facility] Last Admin: 02/05/22 10:42 Dose: 10 ml Lovastatin 40 mg PO DAILY PM 03/20/13 Metformin HCl [Metformin HCl ER] 1,000 mg PO BID 03/20/13 Metoprolol Tartrate 100 mg PO DAILY PM 10/07/16 lisinopriL [Lisinopril] 5 mg PO DAILY 10/07/16 Glimepiride 4 mg PO BID 04/29/18 Apixaban [Eliquis] 5 mg ORAL BID 02/04/22 Insulin Glargine [Lantus Solostar] 22 units SQ DAILY 02/04/22 Allergies/Adverse Reactions: Allergies Allergy/AdvReac Type Severity Reaction Status Date / Time No Known Drug Allergies Allergy Verified 02/04/22 17:15 Anes History & Medical History - Anesthetic History Anesthesia Complications: reports: No previous complications Family history of Anesthesia Complications: Denies Family history of Malignant Hyperthermia: Denies - Medical History Cardiovascular: reports: Hypertension, Atrial fibrillation Pulmonary: reports: None Gastrointestinal: reports: None Urinary: reports: None Neuro: reports: Peripheral neuropathy Musculoskeletal: reports: Osteoarthritis Endocrine/Autoimmune: reports: Type 2 diabetes Blood Disorders: reports: None Skin: reports: None Smoking Status: Former smoker - Surgical History General: reports: Appendectomy Eyes Ears Nose Throat (EENT): reports: Cataracts Cardiothoracic: reports: Other Orthopedic: reports: Arthroscopic surgery Dermatologic: reports: Skin cancer surgery Exam General: Alert, Oriented x3, Cooperative Dental: Other (missing multiple teeth) Mouth Openin Fingerbreadth Neck Mobility: Normal Mallampati classification: II Thyromental Distance: 4-6 cm Respiratory: Lungs clear Cardiovascular: Other (ireegular-AFib) Plan Anesthesia Type: Spinal Regional Block: Per Surgeon's request for Post Op pain control Consent for Procedure(s) Verified and Reviewed: Yes Code Status: Attempt Resuscitation ASA classification: 3-Severe systemic disease Is this case an emergency?: Yes
[2022-02-05] MEDS ORDERED: ATROPINE ABBOJECT 1 MG/10 ML SYRINGE IVP PRN (15:12)
[2022-02-05] MEDS ORDERED: METOCLOPRAMIDE 10 MG/2 ML VIAL IVP PRN (15:12)
[2022-02-05] MEDS ORDERED: NALOXONE 0.4 MG/ML VIAL IVP PRN (15:12)
[2022-02-05] MEDS ORDERED: ePHEDrine 50 MG/ML VIAL IVP PRN (15:12)
[2022-02-05] MEDS ORDERED: ONDANSETRON 4 MG/2 ML VIAL IVP PRN (15:12)
[2022-02-05] MEDS ORDERED: fentaNYL 100 MCG/2 ML VIAL IVP PRN (15:12)
[2022-02-05] MEDS ORDERED: HYDROmorphone 0.5 MG/0.5 ML SYRINGE IVP PRN (15:12)
[2022-02-05] MEDS ORDERED: MORPHINE 2 MG/ML CARPUJECT IVP PRN (15:12)
--- NOTE | 2022-02-05 15:53 | OPERATIVE REPORT ---
Operative Report - General Admit Date: 02/04/22 Procedure Date: 02/05/22 Planned Procedure: Open reduction internal fixation intertrochanteric fracture left hip Pre-Op Diagnosis: Intertrochanteric fracture left hip Procedure Performed: Open reduction internal fixation intertrochanteric fracture left hip with [employer] InterTAN short intramedullary pat, distal locking screw, integrated hip screw with 110 mm lag screw and 105 mm compression screw Post Op Diagnosis: Same as preop diagnosis - Procedure Note Primary Surgeon: Hi Torrez MD Secondary Surgeon: Radha Barrett PAC Anesthesia Provider: Liliane Morton CRNA Anesthesia Technique: Spinal Estimated Blood Loss (mL): 50 Indications: This is a 87-year-old gentleman, relatively active, took a fall from standing ground-level height, fell onto left hip and had pain and difficulty bearing any weight on left leg. He was brought to the emergency room, identified as having a left hip fracture, admitted to the hospital service where he had preoperative medical evaluation by our hospitalist and orthopedic consultation as well. He had painful and limited movement left hip, no significant deformity although may have mild external rotation increase, neurovascular intact, skin intact, no hematoma. He has a history of diabetes and atrial fibrillation. He is on Eliquis but was stopped on admission. His x-rays showed a stable appearing intertrochanteric fracture of the left hip. He was in agreement to the surgery to stabilize the hip and allow ambulation. Informed consent obtained prior to surgery Findings: Mildly displaced intertrochanteric fracture left hip Complications: None - Other Other Information/Narrative: After satisfactory spinal anesthesia was achieved, the patient was transferred to the [place] fracture table in the supine position. Boot traction was applied to the left foot and well-leg sarmiento to the nonoperative right leg. Traction was applied to the left leg through the boot with the patella facing superiorly and the hip in a neutral position with regard to abduction and adduction and hip flexion/extension. The C-arm was used to assess the reduction and showed excellent alignment on both AP and lateral views. The left hip was then prepped and draped in a sterile manner in the usual fashion using a vertical [place] transparent barrier. A 4 to 5 cm incision was made in line with the greater trochanter but proximal to the greater trochanter. The subcutaneous tissue and fascia were split. A starting bone awl was used to engage the trochanteric fossa at its most lateral edge. The starting awl was impacted to lesser trochanter and a long intramedullary guidepin was then inserted. The position of the guidepin was confirmed on both AP and lateral views. Reaming was then carried out with the starting 12.5 mm reamer. Subsequent flexible reaming to 13 mm of the femoral canal was performed in incremental increases. The 11.5 mm diameter pat and guide was then utilized to insert the pat through the trochanteric area and pushed distally using C-arm image intensifier and biplanar mode. The lag screw guidepin was inserted through a separate incision more distal. This was inserted Just below the midline in the AP and In the midline on lateral C arm images. The depth of the guidepin was 115 mm. The compression screw drills were then utilized both short and long. The antirotation bar was inserted. The lag screw reamer was then utilized and placed over the previously inserted pin to the appropriate depth. The 110 mm lag screw was inserted and the compression screw followed achieving nice compression at the fracture site. The alignment of the fracture was very good on both AP and lateral views as well as the fixation. A third incision was made for the distal locking screw. Bicortical fixation was achieved with a 40 mm cortical screw. The wounds were irrigated. The subcutaneous tissue was closed with 2-0 Vicryl and the skin was closed with 3-0 Monocryl, Dermabond and dry sterile dressings. There is no deformity to the leg. The patient tolerated the procedure well. He did receive 2 g of Ancef prior to the incision 1 g tranexamic acid. A physician floor covering printer assistant was medically necessary to help with prepping and draping, positioning, protection of vital structures, assistance during the procedure including wound closure, dressing and/or splinting.
[2022-02-05] MEDS ORDERED: LACTATED RINGERS 1,000 ML IV SCH ×2 (16:00→18:00)
[2022-02-05] MEDS ORDERED: oxyCODONE 5 MG TABLET PO PRN (16:08)
[2022-02-05] MEDS ORDERED: ONDANSETRON 4 MG/2 ML VIAL ONE (16:28)
[2022-02-05] MEDS ORDERED: PHENYLEPHRINE 10 MG/ML VIAL ONE (16:28)
[2022-02-05] MEDS ORDERED: ePHEDrine 50 MG/ML VIAL IVP ONE (16:28)
[2022-02-05] MEDS ORDERED: KETAMINE 500 MG/10 ML VIAL ONE ×2 (16:30→16:31)
[2022-02-05] MEDS ORDERED: LACTATED RINGERS 1,000 ML IV ONE (16:57)
[2022-02-05] MEDS ORDERED: NS W/20 MEQ KCL 1,000 ML IV SCH (17:00)
--- NOTE | 2022-02-05 17:31 | PROVIDER PROGRESS NOTE ---
Hospitalist Cross-cover Note - Cross-Cover Note Cross-Cover Note: A preop EKG was done on this patient which I interpreted, it showed NSR, right bundle branch block and left anterior fascicular block. No prior EKG available for comparison. As pre-op clearance he has a Revised Cardiac Index that is low. This was communicated to Dr Torrez. The rest of the telemedicine hospitalist H&P was reviewed. He needs a Thurman going into the OR which will be ordered, as well as oxycodone in case he does not need morphine. The plan is to take him to the OR in the afternoon, therefore will put this Diabetic pt on D5NS w/ KCL perioperatively, while he is NPO. Order q6h POC glu checks and the ss coverage was already ordered.
--- NOTE | 2022-02-05 17:38 | ANESTHESIA POST OP EVALUATION ---
Anesthesia Post Eval - Post Anesthesia Eval Vitals: Last Vital Signs Temp 36.4 C L 02/05/22 17:09 Pulse 94 02/05/22 17:07 Resp 16 02/05/22 17:07 BP 132/64 H 02/05/22 17:07 Pulse Ox 96 02/05/22 17:07 O2 Flow Rate CV Function Including HR & BP: Stable Pain Control: Satisfactory Nausea & Vomiting: Negative Mental Status: Baseline Respiratory Status: Airway Patent Hydration Status: Satisfactory Anesthesia Complications: None
[2022-02-05] MEDS: INSULIN LISPRO 300 UNIT/3 ML PEN SUBQ SCH (21:05)
[2022-02-05] MEDS: CEFAZOLIN 2G/50ML 0.9% NS 2 GM/50 ML BAG IV SCH (22:03)
[2022-02-06] MEDS: SODIUM CHLORIDE FLUSH 0.9% 10 ML SYRINGE IVP SCH ×4 (03:36→23:47)
[2022-02-06] MEDS: CEFAZOLIN 2G/50ML 0.9% NS 2 GM/50 ML BAG IV SCH (05:30)
[2022-02-06] MEDS ORDERED: METOPROLOL SUCCINATE 25 MG TABLET PO ONE (08:00)
[2022-02-06] MEDS: GLIMEPIRIDE 2 MG TABLET PO SCH ×2 (08:06→20:17)
[2022-02-06] MEDS: oxyCODONE 5 MG TABLET PO PRN (08:06)
[2022-02-06] MEDS: lisinopriL 5 MG TABLET PO SCH (08:06)
[2022-02-06] MEDS: INSULIN LISPRO 300 UNIT/3 ML PEN SUBQ SCH ×4 (08:07→20:16)
[2022-02-06] MEDS ORDERED: APIXABAN 2.5 MG TABLET PO SCH (09:00)
[2022-02-06] MEDS ORDERED: CEFAZOLIN 2G/50ML 0.9% NS 2 GM/50 ML BAG IV ONE (09:00)
[2022-02-06 09:46] LABS: BASOPHILS # (AUTO) 0.1 10^3/uL (0.0-0.1); BASOPHILS % (AUTO) 0.4 %; EOSINOPHILS # (AUTO) 0.3 10^3/uL (0.0-0.7); EOSINOPHILS % (AUTO) 2.3 %; HCT - HEMATOCRIT 39.4 % (42.0-52.0); HGB - HEMOGLOBIN 12.8 g/dL (14.0-18.0); LYMPHOCYTES % (AUTO) 14.6 %; MEAN CORPUSCULAR HEMOGLOBIN 29.1 pg (27.0-31.0); MEAN CORPUSCULAR HGB CONC 32.5 g/dL (32.0-36.0); MEAN CORPUSCULAR VOLUME 89.5 fL (80.0-94.0); MEAN PLATELET VOLUME 10.2 fL (7.4-11.4); MONOCYTES # (AUTO) 0.9 10^3/uL (0.0-1.0); MONOCYTES % (AUTO) 6.9 %; NEUTROPHILS # (AUTO) 10.3 10^3/uL (1.5-6.6); NEUTROPHILS % (AUTO) 75.4 %; PLT - PLATELET COUNT 187 10^3/uL (130-450); RED CELL DISTRIBUTION WIDTH 12.9 % (12.0-15.0); WHITE BLOOD COUNT 13.7 x10^3/uL (4.8-10.8)
[2022-02-06 10:13] LABS: BILIRUBIN,URINE NEGATIVE (NEGATIVE); GLUCOSE, URINE (UA) NEGATIVE (NEGATIVE); KETONES,URINE (UA) 15 mg/dL (NEGATIVE); LEUKOCYTE ESTERASE, URINE SMALL (NEGATIVE); NITRITE,URINE NEGATIVE (NEGATIVE); OCCULT BLOOD,URINE MODERATE (NEGATIVE); PROTEIN,URINE NEGATIVE (NEGATIVE); UROBILINOGEN,URINE 0.2 (NORMAL) E.U./dL (NORMAL)
[2022-02-06 10:16] LABS: CALCIUM 8.6 mg/dL (8.5-10.3); CREATININE 0.9 mg/dL (0.6-1.2)
[2022-02-06 10:29] LABS: ESTIMATED AVERAGE GLUCOSE 183 mg/dL (70-100)
[2022-02-06 10:46] LABS: BACTERIA,URINE Few /HPF (None Seen); CLARITY,URINE HAZY (CLEAR); CRYSTALS,URINE >50 Calcium Oxalate /LPF; SQUAMOUS EPITHELIAL CELL,UR RARE Squamous (<= Few)
--- NOTE | 2022-02-06 13:42 | PROVIDER PROGRESS NOTE ---
Subjective - General Admit Date: 02/04/22 Procedure Date: 02/05/22 Post Op Days: 1 - Other Other Information/Narrative: He is alert, sitting up in bed, minimal pain to left hip. He is anxious to start physical therapy. He denies chest pain, shortness of breath, nausea or vomiting. Objective - Patient Data Vital Signs: Vital Signs x48h Temp Pulse Resp BP Pulse Ox 02/06/22 11:44 37.2 C 109 H 20 110/76 94 02/06/22 07:48 37.2 C 108 H 17 116/69 94 02/06/22 06:05 37.4 C 127 H 16 121/76 95 Weight: Weight 02/05/22 02/05/22 02/06/22 00:59 23:59 23:59 Weight (kg) Intake & Output: Intake and Output Totals x24h 02/05/22 02/05/22 02/06/22 00:59 23:59 23:59 Intake Total 1682.5 Output Total 750 Balance 932.5 - Lab Results Lab Results: 02/06/22 09:38 02/06/22 09:38 Other Lab Results: Lab Results x24hrs 02/06/22 02/06/22 02/06/22 Range/Units 09:59 09:38 09:38 WBC (4.8-10.8) x10^3/uL RBC (4.70-6.10) 10^6/uL Hgb (14.0-18.0) g/dL Hct (42.0-52.0) % MCV (80.0-94.0) fL MCH (27.0-31.0) pg MCHC (32.0-36.0) g/dL RDW (12.0-15.0) % Plt Count (130-450) 10^3/uL MPV (7.4-11.4) fL Neut # (Auto) (1.5-6.6) 10^3/uL Lymph # (Auto) (1.5-3.5) 10^3/uL [place] # (Auto) (0.0-1.0) 10^3/uL Eos # (Auto) (0.0-0.7) 10^3/uL Baso # (Auto) (0.0-0.1) 10^3/uL Absolute Nucleated RBC x10^3/uL Nucleated RBC % /100WBC Sodium 133 L (135-145) mmol/L Potassium 4.0 (3.5-5.0) mmol/L Chloride 102 (101-111) mmol/L Carbon Dioxide 23 (21-32) mmol/L Anion Gap 8.0 (6-13) BUN 15 (6-20) mg/dL Creatinine 0.9 (0.6-1.2) mg/dL Estimated GFR (MDRD) 80 L (>89) Glucose 234 H (70-100) mg/dL Estimat Average Glucose (70-100) mg/dL Hemoglobin A1c % (4.27-6.07) % Calcium 8.6 (8.5-10.3) mg/dL Magnesium 1.8 (1.7-2.8) mg/dL Urine Color YELLOW Urine Clarity HAZY (CLEAR) Urine pH 6.0 (5.0-7.5) PH Ur Specific [place] 1.025 (1.002-1.030) Urine Protein NEGATIVE (NEGATIVE) mg/dL Urine Glucose (UA) NEGATIVE (NEGATIVE) mg/dL Urine Ketones 15 H (NEGATIVE) mg/dL Urine Occult Blood MODERATE H (NEGATIVE) Urine Nitrite NEGATIVE (NEGATIVE) Urine Bilirubin NEGATIVE (NEGATIVE) Urine Urobilinogen 0.2 (NORMAL) (NORMAL) E.U./dL Ur Leukocyte Esterase SMALL H (NEGATIVE) Urine RBC 6-10 H (0-5) /HPF Urine WBC 6-10 H (0-3) /HPF Ur Squamous Epith Cells RARE Squamous (<= Few) Urine Crystals >50 Calcium Oxalate /LPF Urine Bacteria Few (None Seen) /HPF Urine Culture Comments INDICATED 02/06/22 02/06/22 Range/Units 09:38 06:16 WBC 13.7 H (4.8-10.8) x10^3/uL RBC 4.40 L (4.70-6.10) 10^6/uL Hgb 12.8 L (14.0-18.0) g/dL Hct 39.4 L (42.0-52.0) % MCV 89.5 (80.0-94.0) fL MCH 29.1 (27.0-31.0) pg MCHC 32.5 (32.0-36.0) g/dL RDW 12.9 (12.0-15.0) % Plt Count 187 (130-450) 10^3/uL MPV 10.2 (7.4-11.4) fL Neut # (Auto) 10.3 H (1.5-6.6) 10^3/uL Lymph # (Auto) 2.0 (1.5-3.5) 10^3/uL [place] # (Auto) 0.9 (0.0-1.0) 10^3/uL Eos # (Auto) 0.3 (0.0-0.7) 10^3/uL Baso # (Auto) 0.1 (0.0-0.1) 10^3/uL Absolute Nucleated RBC 0.00 x10^3/uL Nucleated RBC % 0.0 /100WBC Sodium (135-145) mmol/L Potassium (3.5-5.0) mmol/L Chloride (101-111) mmol/L Carbon Dioxide (21-32) mmol/L Anion Gap (6-13) BUN (6-20) mg/dL Creatinine (0.6-1.2) mg/dL Estimated GFR (MDRD) (>89) Glucose (70-100) mg/dL Estimat Average Glucose 183 H (70-100) mg/dL Hemoglobin A1c % 8.0 H (4.27-6.07) % Calcium (8.5-10.3) mg/dL Magnesium (1.7-2.8) mg/dL Urine Color Urine Clarity (CLEAR) Urine pH (5.0-7.5) PH Ur Specific [place] (1.002-1.030) Urine Protein (NEGATIVE) mg/dL Urine Glucose (UA) (NEGATIVE) mg/dL Urine Ketones (NEGATIVE) mg/dL Urine Occult Blood (NEGATIVE) Urine Nitrite (NEGATIVE) Urine Bilirubin (NEGATIVE) Urine Urobilinogen (NORMAL) E.U./dL Ur Leukocyte Esterase (NEGATIVE) Urine RBC (0-5) /HPF Urine WBC (0-3) /HPF Ur Squamous Epith Cells (<= Few) Urine Crystals /LPF Urine Bacteria (None Seen) /HPF Urine Culture Comments - Current Medications Current Medications: Current Medications Generic Name Dose Route Start Last Admin Trade Name Freq PRN Reason Stop Dose Admin Glimepiride 4 mg 02/06/22 09:00 02/06/22 08:06 Glimepiride 2 Mg Tablet PO 4 mg BID MARIANNA Administration Insulin Human Lispro 2 - 10 unit 02/05/22 21:00 02/06/22 12:02 Insulin Lispro 300 Unit/3 Ml Pen SUBQ 4 unit 0800,1200,1700,2100 [facility] Administration Protocol Lisinopril 5 mg 02/06/22 09:00 02/06/22 08:06 Lisinopril 5 Mg Tablet PO 5 mg DAILY MARIANNA Administration Morphine Sulfate 2 mg 02/04/22 23:14 02/05/22 01:15 PDT Morphine 2 Mg/Ml Carpuject IVP 2 mg Q4H PRN Administration Pain 8 to 10 Oxycodone HCl 5 mg 02/05/22 08:47 02/06/22 08:06 Oxycodone 5 Mg Tablet PO 5 mg Q4HR PRN Administration PAIN Sodium Chloride 10 ml 02/05/22 01:00 PST 02/06/22 08:07 Sodium Chloride Flush 0.9% 10 Ml Syringe IVP 10 ml 0100,0900,1700 [facility] Administration - Physical Exam Comments/Other: He is alert, articulate, comfortable appearing. Left hip shows intact dressings, no drainage, no sign of hematoma, neurovascular sciatic and femoral nerve is completely intact as well as pedal pulses Impression/Plan - Problem List Problem List: Postop day 1 following open reduction internal fixation intertrochanteric fracture left hip. He can ambulate with walker weightbearing as tolerated. He needs to have deep venous thrombosis prophylaxis which is being accomplished with his Eliquis for atrial fibrillation.
[2022-02-06] MEDS: ACETAMINOPHEN 325 MG TABLET PO PRN (15:58)
--- NOTE | 2022-02-06 17:58 | PROVIDER PROGRESS NOTE ---
Assessment/Plan - Problem List (1) Hip fracture, left Qualifiers: Encounter type: subsequent encounter Assessment/Plan: His fall was a mechanical trip and fall. The patient was admitted and went to the OR yesterday. Today is POD #1. Continue with pain meds. PT and OT evaluations, to start today Further management per orthopedics. 2) Leukocytosis WBC 13>> 12>> 13.7 today. We had suspected this was demargination from the stress of his hip fracture. Since no UA was done at admission/preop, a urinalysis was obtained today while he still had a Thurman catheter in. This showed minimal squamous cells, some bacteria and some white cells seen along with hematuria. Culture was indicated. Will begin empiric Levaquin orally for a UTI 3) Type 2 diabetes mellitus without complications Carb controlled diet, fingerstick checks, ss insulin coverage, hypoglycemia protocol ordered. A1c with a.m. labs ordered. 4) HTN We have resumed his home medications when the med list is reconciled - Current Meds Current Meds: Current Medications Generic Name Dose Route Start Last Admin Trade Name Freq PRN Reason Stop Dose Admin Acetaminophen 650 mg 02/06/22 12:11 02/06/22 15:58 Acetaminophen 325 Mg Tablet PO 650 mg Q4HR PRN Administration Pain or Fever > 38C (100.4F) Glimepiride 4 mg 02/06/22 09:00 02/06/22 08:06 Glimepiride 2 Mg Tablet PO 4 mg BID MARIANNA Administration Insulin Human Lispro 2 - 10 unit 02/05/22 21:00 02/06/22 16:47 Insulin Lispro 300 Unit/3 Ml Pen SUBQ 2 unit 0800,1200,1700,2100 MARIANNA Administration Protocol Lisinopril 5 mg 02/06/22 09:00 02/06/22 08:06 Lisinopril 5 Mg Tablet PO 5 mg DAILY MARIANNA Administration Morphine Sulfate 2 mg 02/04/22 23:14 02/05/22 01:15 PDT Morphine 2 Mg/Ml Carpuject IVP 2 mg Q4H PRN Administration Pain 8 to 10 Oxycodone HCl 5 mg 02/05/22 08:47 02/06/22 08:06 Oxycodone 5 Mg Tablet PO 5 mg Q4HR PRN Administration PAIN Sodium Chloride 10 ml 02/05/22 01:00 PST 02/06/22 16:00 Sodium Chloride Flush 0.9% 10 Ml Syringe IVP 10 ml 0100,0900,1700 [facility] Administration - Lab Result Fish Bone Diagrams: 02/06/22 09:38 02/06/22 09:38 - Additional Planning My Orders: My Active Orders 02/05/22 19:40 Blood Glucose Checks - Eating [RC] 0800,1200,1700,2100 02/05/22 21:00 Insulin Lispro [Humalog Kwikpen U-100] 2 - 10 unit SUBQ 0800,1200,1700,2100 02/06/22 Evaluate and Treat OT [OT] Routine 02/06/22 07:28 Miscellaenous Nursing Order [RC] ONCE 02/06/22 09:00 Glimepiride [Amaryl] 4 mg PO BID lisinopriL [Zestril] 5 mg PO DAILY 02/06/22 09:59 CUL, URINE [RM] Urgent 02/06/22 12:11 Acetaminophen [Tylenol] 650 mg PO Q4HR PRN 02/06/22 21:00 Apixaban [Eliquis] 5 mg PO BID Atorvastatin [Lipitor] 20 mg PO QPM Metoprolol Succinate [Toprol Xl] 100 mg PO QPM 02/07/22 05:00 BMP - BASIC METABOLIC PANEL [CHEM] DAILYLAB CBC - COMP BLD CT W/AUTO DIFF [HEME] DAILYLAB 02/07/22 09:00 levoFLOXacin [Levaquin] 750 mg PO DAILY 02/08/22 05:00 BMP - BASIC METABOLIC PANEL [CHEM] DAILYLAB CBC - COMP BLD CT W/AUTO DIFF [HEME] DAILYLAB Subjective - Subjective Patient Reports: Resting Comfortably, Pain (He complains of pain in his buttocks from sitting yesterday and today. He has not yet gotten out of bed with PT.) Objective Vital Signs: Vital Signs - 24 hr 02/05/22 02/05/22 02/05/22 18:40 22:14 23:45 Temperature 36.4 C L 36.8 C 37.7 C Heart Rate [ 99 114 H 105 H Brachial] Heart Rate [ Sitting] Heart Rate [ Standing] Heart Rate [ Supine] Respiratory 18 18 16 Rate Blood Pressure 132/73 H 126/58 L 126/58 L [Right Brachial artery] Blood Pressure [Sitting] Blood Pressure [Standing] Blood Pressure [Supine] O2 Saturation 97 97 92 02/06/22 02/06/22 02/06/22 06:05 07:48 11:44 Temperature 37.4 C 37.2 C 37.2 C Heart Rate [ 127 H 108 H 109 H Brachial] Heart Rate [ Sitting] Heart Rate [ Standing] Heart Rate [ Supine] Respiratory 16 17 20 Rate Blood Pressure 121/76 116/69 110/76 [Right Brachial artery] Blood Pressure [Sitting] Blood Pressure [Standing] Blood Pressure [Supine] O2 Saturation 95 94 94 02/06/22 02/06/22 13:52 17:00 Temperature 37.3 C Heart Rate [ 105 H Brachial] Heart Rate [ 110 H Sitting] Heart Rate [ 119 H Standing] Heart Rate [ 110 H Supine] Respiratory 16 Rate Blood Pressure 151/90 H [Right Brachial artery] Blood Pressure 113/73 [Sitting] Blood Pressure 116/73 [Standing] Blood Pressure 111/68 [Supine] O2 Saturation 63 L Oxygen O2 Source Room air I&O (Last 24 Hrs): Intake and Output Totals x24h 02/05/22 02/05/22 02/06/22 00:59 23:59 23:59 Intake Total 2422.5 Output Total 750 Balance 1672.5 General: Alert, Oriented x3 HEENT: Atraumatic, Mucous membr. moist/pink, Other (Several missing teeth) Neck: Supple, No JVD Neuro: Alert, Non Focal Cardiovascular: Regular rate, No murmurs Respiratory: No respiratory distress, Breath sounds nml Abdomen: Normal bowel sounds, Soft Extremities: No clubbing, No edema - Results Results: Laboratory Results WBC 13.7 x10^3/uL (4.8-10.8) H 02/06/22 09:38 RBC 4.40 10^6/uL (4.70-6.10) L 02/06/22 09:38 Hgb 12.8 g/dL (14.0-18.0) L 02/06/22 09:38 Hct 39.4 % (42.0-52.0) L 02/06/22 09:38 MCV 89.5 fL (80.0-94.0) 02/06/22 09:38 MCH 29.1 pg (27.0-31.0) 02/06/22 09:38 MCHC 32.5 g/dL (32.0-36.0) 02/06/22 09:38 RDW 12.9 % (12.0-15.0) 02/06/22 09:38 Plt Count 187 10^3/uL (130-450) 02/06/22 09:38 MPV 10.2 fL (7.4-11.4) 02/06/22 09:38 Neut # (Auto) 10.3 10^3/uL (1.5-6.6) H 02/06/22 09:38 Lymph # (Auto) 2.0 10^3/uL (1.5-3.5) 02/06/22 09:38 [place] # (Auto) 0.9 10^3/uL (0.0-1.0) 02/06/22 09:38 Eos # (Auto) 0.3 10^3/uL (0.0-0.7) 02/06/22 09:38 Baso # (Auto) 0.1 10^3/uL (0.0-0.1) 02/06/22 09:38 Absolute Nucleated RBC 0.00 x10^3/uL 02/06/22 09:38 Nucleated RBC % 0.0 /100WBC 02/06/22 09:38 PT 13.4 secs (9.9-12.6) H 02/04/22 17:18 INR 1.2 (0.8-1.2) 02/04/22 17:18 APTT 26.4 secs (24.9-33.3) 02/04/22 17:18 Sodium 133 mmol/L (135-145) L 02/06/22 09:38 Potassium 4.0 mmol/L (3.5-5.0) 02/06/22 09:38 Chloride 102 mmol/L (101-111) 02/06/22 09:38 Carbon Dioxide 23 mmol/L (21-32) 02/06/22 09:38 Anion Gap 8.0 (6-13) 02/06/22 09:38 BUN 15 mg/dL (6-20) 02/06/22 09:38 Creatinine 0.9 mg/dL (0.6-1.2) 02/06/22 09:38 Estimated GFR (MDRD) 80 (>89) L 02/06/22 09:38 Glucose 234 mg/dL (70-100) H 02/06/22 09:38 Estimat Average Glucose 183 mg/dL (70-100) H 02/06/22 06:16 Hemoglobin A1c % 8.0 % (4.27-6.07) H 02/06/22 06:16 Calcium 8.6 mg/dL (8.5-10.3) 02/06/22 09:38 Magnesium 1.8 mg/dL (1.7-2.8) 02/06/22 09:38 Total Bilirubin 1.3 mg/dL (0.2-1.0) H 02/04/22 17:18 AST 20 IU/L (10-42) 02/04/22 17:18 ALT 22 IU/L (10-60) 02/04/22 17:18 Alkaline Phosphatase 51 IU/L (42-121) 02/04/22 17:18 Total Protein 6.6 g/dL (6.7-8.2) L 02/04/22 17:18 Albumin 4.3 g/dL (3.2-5.5) 02/04/22 17:18 Globulin 2.3 g/dL (2.1-4.2) 02/04/22 17:18 Albumin/Globulin Ratio 1.9 (1.0-2.2) 02/04/22 17:18 Urine Color YELLOW 02/06/22 09:59 Urine Clarity HAZY (CLEAR) 02/06/22 09:59 Urine pH 6.0 PH (5.0-7.5) 02/06/22 09:59 Ur Specific [place] 1.025 (1.002-1.030) 02/06/22 09:59 Urine Protein NEGATIVE mg/dL (NEGATIVE) 02/06/22 09:59 Urine Glucose (UA) NEGATIVE mg/dL (NEGATIVE) 02/06/22 09:59 Urine Ketones 15 mg/dL (NEGATIVE) H 02/06/22 09:59 Urine Occult Blood MODERATE (NEGATIVE) H 02/06/22 09:59 Urine Nitrite NEGATIVE (NEGATIVE) 02/06/22 09:59 Urine Bilirubin NEGATIVE (NEGATIVE) 02/06/22 09:59 Urine Urobilinogen 0.2 (NORMAL) E.U./dL (NORMAL) 02/06/22 09:59 Ur Leukocyte Esterase SMALL (NEGATIVE) H 02/06/22 09:59 Urine RBC 6-10 /HPF (0-5) H 02/06/22 09:59 Urine WBC 6-10 /HPF (0-3) H 02/06/22 09:59 Ur Squamous Epith Cells RARE Squamous (<= Few) 02/06/22 09:59 Urine Crystals >50 Calcium Oxalate /LPF 02/06/22 09:59 Urine Bacteria Few /HPF (None Seen) 02/06/22 09:59 Urine Culture Comments INDICATED 02/06/22 09:59 Nasal Adenovirus (PCR) NOT DETECTED 02/04/22 17:45 Nasal B. parapertussis DNA (PCR) NOT DETECTED 02/04/22 17:45 Nasal Coronavir 229E PCR NOT DETECTED 02/04/22 17:45 Nasal Coronavir HKU1 PCR NOT DETECTED 02/04/22 17:45 Nasal Coronavir NL63 PCR NOT DETECTED 02/04/22 17:45 Nasal Coronavir OC43 PCR NOT DETECTED 02/04/22 17:45 Nasal Enterovir/Rhinovir PCR NOT DETECTED 02/04/22 17:45 Nasal Influenza B PCR NOT DETECTED 02/04/22 17:45 Nasal Influenza A PCR NOT DETECTED 02/04/22 17:45 Nasal Parainfluen 1 PCR NOT DETECTED 02/04/22 17:45 Nasal Parainfluen 2 PCR NOT DETECTED 02/04/22 17:45 Nasal Parainfluen 3 PCR NOT DETECTED 02/04/22 17:45 Nasal Parainfluen 4 PCR NOT DETECTED 02/04/22 17:45 Nasal RSV (PCR) NOT DETECTED 02/04/22 17:45 Nasal B.pertussis DNA PCR NOT DETECTED 02/04/22 17:45 Nasal C.pneumoniae (PCR) NOT DETECTED 02/04/22 17:45 Lux Human Metapneumo PCR NOT DETECTED 02/04/22 17:45 Nasal M.pneumoniae (PCR) NOT DETECTED 02/04/22 17:45 Nasal SARS-CoV-2 (PCR) NOT DETECTED 02/04/22 17:45 - Procedures Procedures: Procedures OTHER & OPEN REPAIR UMBILICAL HERNIA W GRAFT OR PROSTHESIS (03/21/13) REPOSITION RIGHT FIBULA WITH INT FIX, OPEN APPROACH (10/17/16)
[2022-02-06] MEDS: ATORVASTATIN 10 MG TABLET PO SCH (20:16)
[2022-02-06] MEDS: APIXABAN 5 MG TABLET PO SCH (20:17)
[2022-02-06] MEDS: METOPROLOL SUCCINATE 50 MG TABLET PO SCH ×2 (20:17→20:22)
[2022-02-06] MEDS ORDERED: NON FORMULARY MED (Metoprolol Succinate [Metoprolol Succinate] 100 MG Tab.Er.24h) PO SCH (21:00)
[2022-02-07 05:27] LABS: BASOPHILS # (AUTO) 0.1 10^3/uL (0.0-0.1); BASOPHILS % (AUTO) 0.8 %; EOSINOPHILS # (AUTO) 0.6 10^3/uL (0.0-0.7); EOSINOPHILS % (AUTO) 5.8 %; HCT - HEMATOCRIT 36.6 % (42.0-52.0); HGB - HEMOGLOBIN 12.1 g/dL (14.0-18.0); LYMPHOCYTES # (AUTO) 2.2 10^3/uL (1.5-3.5); LYMPHOCYTES % (AUTO) 20.8 %; MEAN CORPUSCULAR HGB CONC 33.1 g/dL (32.0-36.0); MEAN CORPUSCULAR VOLUME 90.8 fL (80.0-94.0); MEAN PLATELET VOLUME 10.3 fL (7.4-11.4); MONOCYTES # (AUTO) 1.1 10^3/uL (0.0-1.0); MONOCYTES % (AUTO) 10.3 %; NEUTROPHILS # (AUTO) 6.4 10^3/uL (1.5-6.6); NEUTROPHILS % (AUTO) 61.6 %; PLT - PLATELET COUNT 151 10^3/uL (130-450); RED BLOOD COUNT 4.03 10^6/uL (4.70-6.10); RED CELL DISTRIBUTION WIDTH 13.1 % (12.0-15.0); WHITE BLOOD COUNT 10.3 x10^3/uL (4.8-10.8)
[2022-02-07 05:41] LABS: CALCIUM 8.4 mg/dL (8.5-10.3); CREATININE 0.9 mg/dL (0.6-1.2); MAGNESIUM 2.1 mg/dL (1.7-2.8); POTASSIUM 3.7 mmol/L (3.5-5.0)
[2022-02-07] MEDS: metFORMIN 500 MG TABLET PO SCH ×2 (07:50→17:19)
--- NOTE | 2022-02-07 07:52 | PROVIDER PROGRESS NOTE ---
Subjective - Prog Note Date Prog Note Date: 02/07/22 Prog Note Time: 15:50 - Subjective Subjective: He says he does not know where he can ago after he leaves here. He says he is living out of to his . Other than localized hip pain he denies any other problems. No chest pain. No cough. No shortness of breath. Current Medications - Current Medications Current Medications: Active Medications Acetaminophen (Acetaminophen 325 Mg Tablet) 650 mg PO Q4HR PRN PRN Reason: Pain or Fever > 38C (100.4F) Last Admin: 02/06/22 15:58 Dose: 650 mg Apixaban (Apixaban 5 Mg Tablet) 5 mg PO BID [facility] Last Admin: 02/07/22 08:30 Dose: 5 mg Atorvastatin Calcium (Atorvastatin 10 Mg Tablet) 20 mg PO QPM [facility] [place] Last Admin: 02/06/22 20:16 Dose: 20 mg Calcium Carbonate/Glycine (Calcium Carbonate Chew 500 Mg Tablet) 500 mg PO BID [facility] [place] Cholecalciferol (Cholecalciferol 25 Mcg Tablet) 50 mcg PO DAILY [facility] Glimepiride (Glimepiride 2 Mg Tablet) 4 mg PO BID [facility] [place] Last Admin: 02/07/22 08:30 Dose: 4 mg Insulin Human Lispro (Insulin Lispro 300 Unit/3 Ml Pen) 2 - 10 unit SUBQ 0800,1200,1700,2100 [facility] [place]; Protocol Last Admin: 02/07/22 12:05 Dose: 4 unit Lisinopril (Lisinopril 5 Mg Tablet) 5 mg PO DAILY [facility] [place] Last Admin: 02/07/22 08:31 Dose: 5 mg Metformin HCl (Metformin 500 Mg Tablet) 1,000 mg PO BIDWM [facility] [place] Last Admin: 02/07/22 07:50 Dose: 1,000 mg Metoprolol Succinate (Metoprolol Succinate 50 Mg Tablet) 100 mg PO QPM [facility] [place] Last Admin: 02/06/22 20:22 Dose: Not Given Morphine Sulfate (Morphine 2 Mg/Ml Carpuject) 2 mg IVP Q4H PRN PRN Reason: Pain 8 to 10 Last Admin: 02/05/22 01:15 PDT Dose: 2 mg Ondansetron HCl (Ondansetron 4 Mg/2 Ml Vial) 4 mg IVP Q6HR PRN PRN Reason: Nausea / Vomiting Oxycodone HCl (Oxycodone 5 Mg Tablet) 5 mg PO Q4HR PRN PRN Reason: PAIN Last Admin: 02/06/22 08:06 Dose: 5 mg Polyethylene Glycol (Polyethylene Glycol 3350 17 Gm Packet) 17 gm PO DAILY [facility] [place] Last Admin: 02/07/22 08:30 Dose: 17 gm Sodium Chloride (Sodium Chloride Flush 0.9% 10 Ml Syringe) 10 ml IVP PRN PRN PRN Reason: NEEDED PER PROVIDER ORDERS Sodium Chloride (Sodium Chloride Flush 0.9% 10 Ml Syringe) 10 ml IVP 0100,0900,1700 [facility] [place] Last Admin: 02/07/22 10:00 Dose: 10 ml Lovastatin 40 mg PO DAILY PM 03/20/13 lisinopriL [Lisinopril] 5 mg PO DAILY 10/07/16 Glimepiride 4 mg PO BID 04/29/18 Apixaban [Eliquis] 5 mg ORAL BID 02/04/22 Insulin Glargine [Lantus Solostar] 22 units SQ DAILY 02/04/22 Metformin HCl 1,000 mg PO BID 02/06/22 Metoprolol Succinate 100 mg PO QPM 02/06/22 Objective - Vital Signs/Intake & Output Reviewed Vital Signs: Yes Vital Signs: Vital Signs x48h Temp Pulse Resp BP Pulse Ox 02/07/22 03:40 37.4 C 104 H 18 107/55 L 95 Intake & Output: Intake & Output 02/05/22 02/05/22 02/06/22 02/07/22 00:59 23:59 23:59 23:59 Intake Total 2822.5 0 Output Total 1450 625 Balance 1372.5 -625 - Objective General Appearance: positive: Alert, Other (Forgetful elderly gentleman, sleeping so initially confused.) Eyes Bilateral: positive: PERRL, EOMI ENT: positive: No signs of dehydration Neck: positive: No JVD. negative: Stiff neck Respiratory: positive: No respiratory distress. negative: Wheezes, Rales, R honchi Cardiovascular: positive: Regular rate & rhythm Abdomen: positive: Non-tender, No organomegaly, Nml bowel sounds, No distention Skin: positive: Warm, Dry Extremities: positive: Full ROM Neurologic/Psychiatric: positive: CN's nml (2-12), Motor nml, Disoriented to place, Disoriented to time - Lab Results Fish Bones: 02/07/22 04:49 02/07/22 04:49 Other Labs: Lab Results x24hrs 02/07/22 02/07/22 02/06/22 Range/Units 04:49 04:49 09:59 WBC 10.3 (4.8-10.8) x10^3/uL RBC 4.03 L (4.70-6.10) 10^6/uL Hgb 12.1 L (14.0-18.0) g/dL Hct 36.6 L (42.0-52.0) % MCV 90.8 (80.0-94.0) fL MCH 30.0 (27.0-31.0) pg MCHC 33.1 (32.0-36.0) g/dL RDW 13.1 (12.0-15.0) % Plt Count 151 (130-450) 10^3/uL MPV 10.3 (7.4-11.4) fL Neut # (Auto) 6.4 (1.5-6.6) 10^3/uL Lymph # (Auto) 2.2 (1.5-3.5) 10^3/uL Vance # (Auto) 1.1 H (0.0-1.0) 10^3/uL Eos # (Auto) 0.6 (0.0-0.7) 10^3/uL Baso # (Auto) 0.1 (0.0-0.1) 10^3/uL Absolute Nucleated RBC 0.00 x10^3/uL Nucleated RBC % 0.0 /100WBC Sodium 134 L (135-145) mmol/L Potassium 3.7 (3.5-5.0) mmol/L Chloride 100 L (101-111) mmol/L Carbon Dioxide 25 (21-32) mmol/L Anion Gap 9.0 (6-13) BUN 21 H (6-20) mg/dL Creatinine 0.9 (0.6-1.2) mg/dL Estimated GFR (MDRD) 80 L (>89) Glucose 138 H (70-100) mg/dL Estimat Average Glucose (70-100) mg/dL Hemoglobin A1c % (4.27-6.07) % Calcium 8.4 L (8.5-10.3) mg/dL Magnesium 2.1 (1.7-2.8) mg/dL Urine Color YELLOW Urine Clarity HAZY (CLEAR) Urine pH 6.0 (5.0-7.5) PH Ur Specific [place] 1.025 (1.002-1.030) Urine Protein NEGATIVE (NEGATIVE) mg/dL Urine Glucose (UA) NEGATIVE (NEGATIVE) mg/dL Urine Ketones 15 H (NEGATIVE) mg/dL Urine Occult Blood MODERATE H (NEGATIVE) Urine Nitrite NEGATIVE (NEGATIVE) Urine Bilirubin NEGATIVE (NEGATIVE) Urine Urobilinogen 0.2 (NORMAL) (NORMAL) E.U./dL Ur Leukocyte Esterase SMALL H (NEGATIVE) Urine RBC 6-10 H (0-5) /HPF Urine WBC 6-10 H (0-3) /HPF Ur Squamous Epith Cells RARE Squamous (<= Few) Urine Crystals >50 Calcium Oxalate /LPF Urine Bacteria Few (None Seen) /HPF Urine Culture Comments INDICATED 02/06/22 02/06/22 02/06/22 Range/Units 09:38 09:38 09:38 WBC 13.7 H (4.8-10.8) x10^3/uL RBC 4.40 L (4.70-6.10) 10^6/uL Hgb 12.8 L (14.0-18.0) g/dL Hct 39.4 L (42.0-52.0) % MCV 89.5 (80.0-94.0) fL MCH 29.1 (27.0-31.0) pg MCHC 32.5 (32.0-36.0) g/dL RDW 12.9 (12.0-15.0) % Plt Count 187 (130-450) 10^3/uL MPV 10.2 (7.4-11.4) fL Neut # (Auto) 10.3 H (1.5-6.6) 10^3/uL Lymph # (Auto) 2.0 (1.5-3.5) 10^3/uL Vance # (Auto) 0.9 (0.0-1.0) 10^3/uL Eos # (Auto) 0.3 (0.0-0.7) 10^3/uL Baso # (Auto) 0.1 (0.0-0.1) 10^3/uL Absolute Nucleated RBC 0.00 x10^3/uL Nucleated RBC % 0.0 /100WBC Sodium 133 L (135-145) mmol/L Potassium 4.0 (3.5-5.0) mmol/L Chloride 102 (101-111) mmol/L Carbon Dioxide 23 (21-32) mmol/L Anion Gap 8.0 (6-13) BUN 15 (6-20) mg/dL Creatinine 0.9 (0.6-1.2) mg/dL Estimated GFR (MDRD) 80 L (>89) Glucose 234 H (70-100) mg/dL Estimat Average Glucose (70-100) mg/dL Hemoglobin A1c % (4.27-6.07) % Calcium 8.6 (8.5-10.3) mg/dL Magnesium 1.8 (1.7-2.8) mg/dL Urine Color Urine Clarity (CLEAR) Urine pH (5.0-7.5) PH Ur Specific [place] (1.002-1.030) Urine Protein (NEGATIVE) mg/dL Urine Glucose (UA) (NEGATIVE) mg/dL Urine Ketones (NEGATIVE) mg/dL Urine Occult Blood (NEGATIVE) Urine Nitrite (NEGATIVE) Urine Bilirubin (NEGATIVE) Urine Urobilinogen (NORMAL) E.U./dL Ur Leukocyte Esterase (NEGATIVE) Urine RBC (0-5) /HPF Urine WBC (0-3) /HPF Ur Squamous Epith Cells (<= Few) Urine Crystals /LPF Urine Bacteria (None Seen) /HPF Urine Culture Comments 02/06/22 Range/Units 06:16 WBC (4.8-10.8) x10^3/uL RBC (4.70-6.10) 10^6/uL Hgb (14.0-18.0) g/dL Hct (42.0-52.0) % MCV (80.0-94.0) fL MCH (27.0-31.0) pg MCHC (32.0-36.0) g/dL RDW (12.0-15.0) % Plt Count (130-450) 10^3/uL MPV (7.4-11.4) fL Neut # (Auto) (1.5-6.6) 10^3/uL Lymph # (Auto) (1.5-3.5) 10^3/uL [place] # (Auto) (0.0-1.0) 10^3/uL Eos # (Auto) (0.0-0.7) 10^3/uL Baso # (Auto) (0.0-0.1) 10^3/uL Absolute Nucleated RBC x10^3/uL Nucleated RBC % /100WBC Sodium (135-145) mmol/L Potassium (3.5-5.0) mmol/L Chloride (101-111) mmol/L Carbon Dioxide (21-32) mmol/L Anion Gap (6-13) BUN (6-20) mg/dL Creatinine (0.6-1.2) mg/dL Estimated GFR (MDRD) (>89) Glucose (70-100) mg/dL Estimat Average Glucose 183 H (70-100) mg/dL Hemoglobin A1c % 8.0 H (4.27-6.07) % Calcium (8.5-10.3) mg/dL Magnesium (1.7-2.8) mg/dL Urine Color Urine Clarity (CLEAR) Urine pH (5.0-7.5) PH Ur Specific [place] (1.002-1.030) Urine Protein (NEGATIVE) mg/dL Urine Glucose (UA) (NEGATIVE) mg/dL Urine Ketones (NEGATIVE) mg/dL Urine Occult Blood (NEGATIVE) Urine Nitrite (NEGATIVE) Urine Bilirubin (NEGATIVE) Urine Urobilinogen (NORMAL) E.U./dL Ur Leukocyte Esterase (NEGATIVE) Urine RBC (0-5) /HPF Urine WBC (0-3) /HPF Ur Squamous Epith Cells (<= Few) Urine Crystals /LPF Urine Bacteria (None Seen) /HPF Urine Culture Comments Assessment/Plan - Problem List (1) Hip fracture, left Impression: His fall was a mechanical trip and fall. The patient was admitted and went to the OR 11/. Today is POD #2. Continue with pain meds. PT and OT evaluations ongoing. they do recommend SNF for rehab. He has been accepted and will be transferred POD#3. I will check a Covid for them. Further management per orthopedics. 2) Leukocytosis WBC 13>> 12>> 13.7>>10.3 today. We had suspected this was demargination from the stress of his hip fracture. Since no UA was done at admission/preop, a urinalysis was obtained 02/06 while he still had a Thurman catheter in. This showed minimal squamous cells, some bacteria and some white cells seen along with hematuria. Culture was indicated. Previous hospitalist did start Levaquin on February 06. However, pharmacy feels that this is not necessarily indicated and asked that Levaquin be stopped. 3) Type 2 diabetes mellitus without complications Carb controlled diet, fingerstick checks, ss insulin coverage, hypoglycemia protocol ordered. A1c is 8%. Average glucose 183. At home he is on glimepiride 4 mg twice daily and this was to be titrated down as Lantus went up. At home he is on Lantus 22 units daily as well as metformin 1000 mg p.o. twice daily. Here we have him on glimepiride 4 mg twice daily, sliding scale insulin, metformin 1000 mg p.o. twice daily but no Lantus. Glucose yesterday was 189, 186, 154, 175. This morning he is 121 and at lunch he was 208. Once he is transition to intermediate facility, I think we will keep him on the same regimen we have him on right now. He is 87 years old. Too tight of control may be contraindicated while he is in a controlled environment such as hospital or a intermediate facility. If he is indiscrete with his diet at home, it may be more appropriate to start the Lantus when he gets home. 4) HTN Home medication was lisinopril 5 mg daily and metoprolol succinate 100 mg at [facility]. Both of those have been resumed. Blood pressure is 118/73, 114/61. Heart rate is between 103 and as high as 110. He does not have acute blood loss anemia. No fever. He may be having some a mild case of rebound tachycardia. Metoprolol was resumed for the first dose today.
[2022-02-07] MEDS: polyethylene glycoL 3350 17 GM PACKET PO SCH (08:30)
[2022-02-07] MEDS: APIXABAN 5 MG TABLET PO SCH ×2 (08:30→20:36)
[2022-02-07] MEDS: GLIMEPIRIDE 2 MG TABLET PO SCH ×2 (08:30→20:36)
[2022-02-07] MEDS: INSULIN LISPRO 300 UNIT/3 ML PEN SUBQ SCH ×4 (08:31→20:37)
[2022-02-07] MEDS: lisinopriL 5 MG TABLET PO SCH (08:31)
[2022-02-07] MEDS ORDERED: levoFLOXacin 250 MG TABLET PO SCH (09:00)
[2022-02-07] MEDS: SODIUM CHLORIDE FLUSH 0.9% 10 ML SYRINGE IVP SCH ×2 (10:00→17:20)
[2022-02-07 14:06] LABS: B. PARAPERTUSSIS- RESP PCR PAN NOT DETECTED; B. PERTUSSIS- RESP PCR PANEL NOT DETECTED; C. PNEUMONIAE- RESP PCR PANEL NOT DETECTED; CORONAVIRUS 229E-RESP PCR NOT DETECTED; CORONAVIRUS HKU1-RESP PCR NOT DETECTED; CORONAVIRUS NL63-RESP PCR NOT DETECTED; CORONAVIRUS OC43-RESP PCR NOT DETECTED; HUMAN METAPNEUMOVIRUS NOT DETECTED; INFLUENZA A- RESP PCR PANEL NOT DETECTED; INFLUENZA B - RESP PCR PANEL NOT DETECTED; M. PNEUMONIAE- RESP PCR PANEL NOT DETECTED; PARAINFLUENZA VIRUS 1 NOT DETECTED; PARAINFLUENZA VIRUS 2 NOT DETECTED; PARAINFLUENZA VIRUS 3 NOT DETECTED; PARAINFLUENZA VIRUS 4 NOT DETECTED; RHINOVIRUS/ENTEROVIRUS NOT DETECTED; RSV- RESP PCR PANEL NOT DETECTED; SARS-CoV-2 -RESP PCR PANEL NOT DETECTED
[2022-02-07] MEDS: ACETAMINOPHEN 325 MG TABLET PO PRN (17:19)
[2022-02-07] MEDS: ATORVASTATIN 10 MG TABLET PO SCH (20:36)
[2022-02-07] MEDS: CALCIUM CARBONATE CHEW 500 MG TABLET PO SCH (20:36)
[2022-02-07] MEDS: METOPROLOL SUCCINATE 50 MG TABLET PO SCH (20:36)
[2022-02-08] MEDS: SODIUM CHLORIDE FLUSH 0.9% 10 ML SYRINGE IVP SCH ×2 (01:19→09:31)
[2022-02-08 05:14] LABS: BASOPHILS # (AUTO) 0.1 10^3/uL (0.0-0.1); BASOPHILS % (AUTO) 0.7 %; EOSINOPHILS # (AUTO) 0.7 10^3/uL (0.0-0.7); EOSINOPHILS % (AUTO) 5.1 %; HCT - HEMATOCRIT 37.2 % (42.0-52.0); HGB - HEMOGLOBIN 12.3 g/dL (14.0-18.0); LYMPHOCYTES # (AUTO) 2.8 10^3/uL (1.5-3.5); LYMPHOCYTES % (AUTO) 20.4 %; MEAN CORPUSCULAR HEMOGLOBIN 30.2 pg (27.0-31.0); MEAN CORPUSCULAR HGB CONC 33.1 g/dL (32.0-36.0); MEAN CORPUSCULAR VOLUME 91.4 fL (80.0-94.0); MEAN PLATELET VOLUME 10.1 fL (7.4-11.4); MONOCYTES # (AUTO) 1.3 10^3/uL (0.0-1.0); MONOCYTES % (AUTO) 9.3 %; NEUTROPHILS # (AUTO) 8.8 10^3/uL (1.5-6.6); NEUTROPHILS % (AUTO) 63.8 %; PLT - PLATELET COUNT 175 10^3/uL (130-450); RED BLOOD COUNT 4.07 10^6/uL (4.70-6.10); WHITE BLOOD COUNT 13.7 x10^3/uL (4.8-10.8)
[2022-02-08 05:23] LABS: CALCIUM 8.8 mg/dL (8.5-10.3); CREATININE 0.9 mg/dL (0.6-1.2); POTASSIUM 3.8 mmol/L (3.5-5.0)
--- NOTE | 2022-02-08 07:32 | Discharge Plan ---
"Discharge Plan for SNF / [facility] - Discharge Plan And Transition Orders Problem Reviewed?: Yes Disposition: SNF DC/Xfer Condition: Stable Allergies and Adverse Reactions: Allergies Allergy/AdvReac Type Severity Reaction Status Date / Time No Known Drug Allergies Allergy Verified 02/04/22 17:15 Health Concerns: 87-year-old white male with a past medical history of diabetes, hypertension, chronic atrial fibrillation on anticoagulation, and dementia who tripped and fell outside his house and landed on his left hip. He was brought to the emergency room because of pain and was found to have a left intratrochanteric fracture. Head CT was negative. He underwent an open reduction internal fixation of the left hip on February 05 with a [employer] InterTAN short intramedullary pta, distal interlocking screw, integrated hip screw with 110 mm lag screw and 105 mm compression screw. Postoperatively there was an elevation of his white cell count. Urine was done but culture had no growth. Levaquin wa s started and stopped. His home medications with regards to lisinopril and metoprolol, metformin and glimepiride were resumed. A1c was 8% with an estimated average glucose of 183. He may require 10 units of Lantus at your facility to keep him in goal and to help with wound healing. On the day of discharge, the patient had a sudden urge to defecate and took himself to the bathroom. He was incontinent and slipped in his stool. Nursing was in the room when he braced up against the shower chair in the bathroom and slowly slid to the floor on the right side of his body. There was no trauma. No hitting his head. Patient did not complain of pain. Plan of Treatment: 1. Rehabilitation at a [facility] facility until he is able to ambulate independently. 2. Control of his glucose and aim for an A1c less than 7.5%. 3. Monitor for signs and symptoms of UTI Care Goals: He would like to return to independent living with his spouse. They have recently sold their house here on [facility] are in the process of moving into their house near [place] to be near their children. Assessment: During his stay, dementia was evident. Confusion, memory loss. is power of associate attorney and advocate and states she will follow through with care plan - SNF / [facility] Transition Orders Discharge Diagnosis: 1. Left intertrochanteric hip fracture, status post ORIF 2. Type 2 diabetes mellitus, without complication, not on long-term insulin 3. Hypertension 4. Chronic atrial fibrillation 5. Leukocytosis Medicare Certification Statement: I certify that [facility] care is medically necessary on a continuing basis for any of the conditions for which she/he is receiving care during hospitalization. Notify PCP of admission and forward orders to primary provider for signature. Weight on admission and: Weekly Other Notification Orders: Call PCP immediately if patient develops dyspnea, chest pain/tightness or edema. House Bowel Program: Yes Additional Bowel Program Orders: If no BM after 2 days, nurse may give M.O.M. 30ml PO PRN and/or ducolax Supp 1 VT and/or CASANDRA 250mg P.O., and/or senna 1-2 tabs PO. On day 3 nurse may give repeat above order until residents constipation is resolved. Annual Influenza Vaccine (between Dec 01 and June 30): Yes Orthopedic Orders: 1. Keep wound clean and dry. If bandages become soiled, please remove and replace with clean bandages. 2. Please see orthopedic surgery in follow-up approximately February 19. Medication Orders: PLEASE REFER TO THE DISCHARGE MEDICATION LIST. Insulin Orders?: Yes - Medications New Prescriptions: oxyCODONE [Roxicodone] 5 mg PO Q4HR PRN #30 tab PRN Reason: Pain - Diet Type: No added sugar Texture: Regular Liquids: Thin May have monthly special meal: Yes - Therapies | Activity Therapy: Evaluation | Treat if indicated: PT, OT Rehabilitation Potential: Return to independent living Activity: Wt Bearing as Tolerated Weight Bearing: Full Weight Assistance Devices: Walker Follow Up: Ren Singer MD or a new PCP that you have established with Insulin Orders - SNF Basal | Correction | Custom Orders: Diagnosis: Diabetes Initiate hypo and hyperglycemia protocols for BG <70 and BG >375. May check BG PRN for signs/symptoms of dysglycemia. Frequency of BG checks: [AC/Meal/HS] Basal Insulin: [x] Lantus 100 units / ml inject subq as follows: [10 units SQ every night] [] Other: [] Correction Insulin: - Select the type of insulin below [Choose: Novolog/Humalog]100 units /ml insulin inject subq per orders indicate below [x] LOW DOSE [] MODERATE DOSE [] MODERATE/HIGH DOSE [] HIGH DOSE GB UNITS GB UNITS GB UNITS GB UNITS 61-140 0 UNITS 61-140 0 UNITS 61-140 0 UNITS 61-140 0 UNITS 141-175 1 UNITS 141-175 1 UNITS 141-175 2 UNITS 141-175 3 UNITS 176-225 2 UNITS 176-225 3 UNITS 176-225 4 UNITS 176-225 5 UNITS 226-275 3 UNITS 226-275 5 UNITS 226-275 6 UNITS 226-275 7 UNITS 276-325 4 UNITS 276-325 7 UNITS 276-325 8 UNITS 276-325 9 UNITS 326-375 5 UNITS 326-375 9 UNITS 326-375 10 UNITS 326-375 11 UNITS >375 CONTACT MD >375 CONTACT MD >375 CONTACT MD >375 CONTACT MD Custom Dosing: [Choose: Novolog/Humalog] 100 units/ml Insulin inject subq as follows: GB Units 61-140 [] Units 141-175 [] Units 176-225 [] Units 226-275 [] Units 276-325 []Units 326-375 [] Units >375 Contact MD"
[2022-02-08] MEDS: INSULIN LISPRO 300 UNIT/3 ML PEN SUBQ SCH ×2 (07:50→11:53)
[2022-02-08] MEDS: metFORMIN 500 MG TABLET PO SCH (07:53)
[2022-02-08] MEDS ORDERED: CHOLECALCIFEROL 25 MCG TABLET PO SCH (09:00)
--- NOTE | 2022-02-08 09:21 | DISCHARGE SUMMARY ---
"Discharge Summary Admit Date: 02/04/22 Discharge Date: 02/08/22 Discharging Provider: Michelle Verdin MD Primary Care Provider: Ren Singer MD Code Status: Attempt Resuscitation Condition at Discharge: Stable Discharge Disposition: DC/Xfer - DIAGNOSES Discharge Diagnoses with Status of Each Condition: 1. Left intertrochanteric hip fracture, status post ORIF 2. Type 2 diabetes mellitus, without complication, not on long-term insulin 3. Hypertension 4. Chronic atrial fibrillation 5. Leukocytosis - HPI History of Present Illness: 85 y old male with PMH DM 2, A fib on [facility] due to fall and left hip pain. As per pt,he tripped and fell.Denies head injury or LOC. Denies fever, cough, chest pain, nausea, vomiting, abdominal pain, diarrhea, constipation, symptoms. On prensentaion, pt was afebrile. Labs showed leukocytosis COVID neg CXR no acute findings X ray left hip showed non-displaced intertrochenteric fracture of left femur. As per ER physician, Dr Burns, He consulted with Ortho pedic director information who recommended ORIF in am Pt is being admitted due to left hip fracture - Past Medical History Cardiovascular: reports: Hypertension, Atrial fibrillation Respiratory: reports: None Neuro: reports: Peripheral neuropathy Endocrine/Autoimmune: reports: Type 2 diabetes GI: reports: None : reports: None HEENT: reports: None Psych: reports: None Musculoskeletal: reports: Osteoarthritis Derm: reports: None MRSA Hx?: No - Past Surgical History General: reports: Appendectomy Ortho: reports: Arthroscopic surgery Cardiovascular: reports: Other HEENT: reports: Cataracts Derm: reports: Skin cancer surgery - CONSULTS | PROCEDURES Procedures: 1. Open reduction internal fixation of left intertrochanteric femoral fracture. 2. Head CT with atrophy and chronic ischemic changes without intracranial hemorrhage or mass-effect. Calcified extra-axial mass lesion in the right posterior fossa consistent with meningioma, stable from prior CT with date not mentioned in body of report. 3. Chest x-ray is without acute cardiopulmonary process 4. Hip and pelvis plain film with nondisplaced left intratrochanteric femoral fracture. - HOSPITAL COURSE Hospital Course: The patient went an uncomplicated open reduction internal fixation surgery on February 05 with a [employer] InterTAN short intramedullary pat, distal locking screw, integrated hip screw with 110 mm lag screw and 105 mm compression screw. Postoperatively there was no severe anemia. His pau was 12.3 g of hemoglobin and he did not require transfusion. His blood pressure was managed with his usual home medications of lisinopril and metoprolol. He was resumed on his anticoagulant for atrial fibrillation. This was Eliquis. Prior to admission he was on a gradually increasing dose of Lantus and was up to 22 units at night. At the same time glimepiride was being reduced. Because he was on a carb restricted diet here his glucose was well controlled and we did not resume him on his usual 22 units of Lantus. He was getting sliding scale. As such he is being transferred to the senior care facility with 10 units of Lantus at night, glimepiride 4 mg p.o. twice daily to be tapered per the usual outpatient instructions that he received before admission. He will need to be seen by orthopedics 2 weeks from the date of surgery which was February 05. The wound will need to be kept clean and dry. If it becomes dirty or wet, clean dressing can be applied. Sutures or hayley can be removed at that time. He has mepelex that can be removed in the next 2 days. Repeat plain films should be done in 6 weeks with an ortho visit in 2 weeks and 6 weeks according to our orthopedic surgeon. The patient's pain was adequately controlled with oral opiates in the form of oxycodone. His last dose of oral oxycodone was February 06 at 8 in the morning. On the day of discharge the patient had a sudden urge to defecate and got up out of bed without calling the nurse. He was incontinent of stool and was leaning up against a shower chair when he slipped and had his right shoulder on the wall. He had a witnessed slow slide to the floor. No blow to the head. He was embarrassed. Had no pain in his shoulder or right hip. No films were done. Follow-up examination 4 hours later showed him to be alert, oriented, without any new pain. Pain is localized to the already operated on hip. On admission he had abnormal urinary constituents that were empirically treated his UTI. Blood culture came back as contamination antibiotics were discontinued. Of note white cell count was 13 on admission. Dropped to 10.3 with antibiotics and will back up to 13.7 without antibiotics. He should be monitored for signs and symptoms of a UTI At discharge temperature was 36.6. Heart rate 91. Blood pressure 128/71. Respirations 20. 96% on room air. He is 6 foot 1 inches tall and weighs 105 kg . He is alert and oriented to person place and time. Slightly deaf. Supple neck. Diminished breath sounds at the bases but clear without any increased respiratory effort. Irregular rate and rhythm that is rate controlled. And abdomen that is benign. Extremities have trace edema on the affected operated leg. The wound is clean, closed, no dehiscence or redness or drainage. Greater than 30 minutes spent coordinating discharge. The patient is in the process of selling his home here on [facility] and has bought a new downsized home in the [facility]. He is being transferred to a senior care facility in that area. It is unclear if he will follow-up with orthopedics here in the next 2 weeks or if he needs to be seen by orthopedics there. It is also unclear if he will follow-up with his primary care provider here or will already have a new primary care provider in the next 2 to 3 weeks. - ALLERGIES Allergies/Adverse Reactions: Allergies Allergy/AdvReac Type Severity Reaction Status Date / Time No Known Drug Allergies Allergy Verified 02/04/22 17:15 - MEDICATIONS Home Medications: Ambulatory Orders Medication Instructions Recorded Confirmed lisinopriL [Lisinopril] 5 mg PO DAILY 10/07/16 02/04/22 Glimepiride 4 mg PO BID 04/29/18 02/04/22 Metoprolol Succinate 100 mg PO QPM 02/06/22 02/06/22 Acetaminophen [Tylenol] 650 mg PO Q4HR PRN tab 02/08/22 Apixaban [Eliquis] 5 mg ORAL BID #0 02/08/22 02/04/22 Calcium Carbonate [Tums (Calcium 500 mg PO BID tab 02/08/22 Carbonate 500mg)] Cholecalciferol [Vitamin D3] 50 mcg PO DAILY tab 02/08/22 Insulin Glargine [Lantus Solostar] 10 units SQ DAILY #0 02/08/22 02/04/22 Lovastatin 40 mg PO DAILY PM #0 02/08/22 02/04/22 Metformin HCl 1,000 mg PO BID #0 02/08/22 02/06/22 oxyCODONE [Roxicodone] 5 mg PO Q4HR PRN #30 tab 02/08/22 - LABS Result Diagrams: 02/08/22 04:55 02/08/22 04:55"
[2022-02-08] MEDS: polyethylene glycoL 3350 17 GM PACKET PO SCH (09:24)
[2022-02-08] MEDS: GLIMEPIRIDE 2 MG TABLET PO SCH (09:30)
[2022-02-08] MEDS: lisinopriL 5 MG TABLET PO SCH (09:30)
[2022-02-08] MEDS: APIXABAN 5 MG TABLET PO SCH (09:30)
[2022-02-08] MEDS: CALCIUM CARBONATE CHEW 500 MG TABLET PO SCH (09:30)
--- NOTE | 2022-02-08 11:25 | XRAY Report ---
PROCEDURE: OR C-Arm Procedure INDICATIONS: ORIF LEFT HIP TECHNIQUE: 2 low-resolution intraoperative fluoroscopic spot films of the left hip were obtained COMPARISON: None. FINDINGS: Low-resolution spot films show femoral nail and 2 femoral neck screws in good position with locking s crew. IMPRESSION: Fluoroscopic guidance Reviewed by: Herve Hussein MD on 02/08/2022 10:23 AM [facility] Approved by: Herve Hussein MD on 02/08/2022 10:23 AM [facility] Station ID: [id number]
--- NOTE | 2022-02-08 11:56 | PROVIDER PROGRESS NOTE ---
Subjective - General Admit Date: 02/04/22 Procedure Date: 02/05/22 Post Op Days: 3 Procedure Performed: ORIF left hip for trochanteric fracture - Review of Systems Wound/Incisions: positive: Healing well - Other Other Information/Narrative: Alert, sitting up in a chair reading a book He states he has a planned discharge for 2pm today to a SNF in [place] Pain is controlled, no chest pain or dyspnea Objective - Patient Data Vital Signs: Vital Signs x48h Temp Pulse Resp BP Pulse Ox 02/08/22 11:51 36.7 C 100 20 108/71 96 02/08/22 08:53 36.6 C 91 20 128/71 96 02/08/22 04:53 37.3 C 83 14 125/53 L 97 Intake & Output: Intake and Output Totals x24h 02/06/22 02/07/22 02/08/22 23:59 23:59 23:59 Intake Total 2822.5 1758 360 Output Total 1450 1400 1225 Balance 1372.5 358 -865 - Lab Results Lab Results: 02/08/22 04:55 02/08/22 04:55 Other Lab Results: Lab Results x24hrs 02/08/22 02/08/22 02/07/22 Range/Units 04:55 04:55 12:52 WBC 13.7 H (4.8-10.8) x10^3/uL RBC 4.07 L (4.70-6.10) 10^6/uL Hgb 12.3 L (14.0-18.0) g/dL Hct 37.2 L (42.0-52.0) % MCV 91.4 (80.0-94.0) fL MCH 30.2 (27.0-31.0) pg MCHC 33.1 (32.0-36.0) g/dL RDW 13.0 (12.0-15.0) % Plt Count 175 (130-450) 10^3/uL MPV 10.1 (7.4-11.4) fL Neut # (Auto) 8.8 H (1.5-6.6) 10^3/uL Lymph # (Auto) 2.8 (1.5-3.5) 10^3/uL Winkler # (Auto) 1.3 H (0.0-1.0) 10^3/uL Eos # (Auto) 0.7 (0.0-0.7) 10^3/uL Baso # (Auto) 0.1 (0.0-0.1) 10^3/uL Absolute Nucleated RBC 0.00 x10^3/uL Nucleated RBC % 0.0 /100WBC Sodium 136 (135-145) mmol/L Potassium 3.8 (3.5-5.0) mmol/L Chloride 102 (101-111) mmol/L Carbon Dioxide 26 (21-32) mmol/L Anion Gap 8.0 (6-13) BUN 18 (6-20) mg/dL Creatinine 0.9 (0.6-1.2) mg/dL Estimated GFR (MDRD) 80 L (>89) Glucose 179 H (70-100) mg/dL Calcium 8.8 (8.5-10.3) mg/dL Nasal Adenovirus (PCR) NOT DETECTED Nasal B. parapertussis DNA (PCR) NOT DETECTED Nasal Coronavir 229E PCR NOT DETECTED Nasal Coronavir HKU1 PCR NOT DETECTED Nasal Coronavir NL63 PCR NOT DETECTED Nasal Coronavir OC43 PCR NOT DETECTED Nasal Enterovir/Rhinovir PCR NOT DETECTED Nasal Influenza B PCR NOT DETECTED Nasal Influenza A PCR NOT DETECTED Nasal Parainfluen 1 PCR NOT DETECTED Nasal Parainfluen 2 PCR NOT DETECTED Nasal Parainfluen 3 PCR NOT DETECTED Nasal Parainfluen 4 PCR NOT DETECTED Nasal RSV (PCR) NOT DETECTED Nasal B.pertussis DNA PCR NOT DETECTED Nasal C.pneumoniae (PCR) NOT DETECTED Lux Human Metapneumo PCR NOT DETECTED Nasal M.pneumoniae (PCR) NOT DETECTED Nasal SARS-CoV-2 (PCR) NOT DETECTED - Imaging Results Radiology Imaging: positive: Final report received - Current Medications Current Medications: Current Medications Generic Name Dose Route Start Last Admin Trade Name Freq PRN Reason Stop Dose Admin Acetaminophen 650 mg 02/06/22 12:11 02/07/22 17:19 Acetaminophen 325 Mg Tablet PO 650 mg Q4HR PRN Administration Pain or Fever > 38C (100.4F) Apixaban 5 mg 02/06/22 21:00 02/08/22 09:30 Apixaban 5 Mg Tablet PO 5 mg BID [facility] Administration Atorvastatin Calcium 20 mg 02/06/22 21:00 02/07/22 20:36 Atorvastatin 10 Mg Tablet PO 20 mg QPM [facility] Administration Calcium Carbonate/Glycine 500 mg 02/07/22 21:00 02/08/22 09:30 Calcium Carbonate Chew 500 Mg Tablet PO 500 mg BID [facility] Administration Cholecalciferol 50 mcg 02/08/22 09:00 02/08/22 09:30 Cholecalciferol 25 Mcg Tablet PO 50 mcg DAILY [facility] Administration Glimepiride 4 mg 02/06/22 09:00 02/08/22 09:30 Glimepiride 2 Mg Tablet PO 4 mg BID [facility] Administration Insulin Human Lispro 2 - 10 unit 02/05/22 21:00 02/08/22 07:50 Insulin Lispro 300 Unit/3 Ml Pen SUBQ 2 unit 0800,1200,1700,2100 [facility] Administration Protocol Lisinopril 5 mg 02/06/22 09:00 02/08/22 09:30 Lisinopril 5 Mg Tablet PO 5 mg DAILY [facility] Administration Metformin HCl 1,000 mg 02/07/22 08:00 02/08/22 07:53 Metformin 500 Mg Tablet PO 1,000 mg BIDWM [facility] Administration Metoprolol Succinate 100 mg 02/06/22 21:00 02/07/22 20:36 Metoprolol Succinate 50 Mg Tablet PO 100 mg QPM [facility] Administration Morphine Sulfate 2 mg 02/04/22 23:14 02/05/22 01:15 PDT Morphine 2 Mg/Ml Carpuject IVP 2 mg Q4H PRN Administration Pain 8 to 10 Oxycodone HCl 5 mg 02/05/22 08:47 02/06/22 08:06 Oxycodone 5 Mg Tablet PO 5 mg Q4HR PRN Administration PAIN Polyethylene Glycol 17 gm 02/07/22 09:00 02/08/22 09:24 Polyethylene Glycol 3350 17 Gm Packet PO Not Given DAILY [facility] Sodium Chloride 10 ml 02/05/22 01:00 PST 02/08/22 09:31 Sodium Chloride Flush 0.9% 10 Ml Syringe IVP 10 ml 0100,0900,1700 [facility] Administration - Physical Exam Wound/Incisions: positive: Healing well, Dressing dry and intact, No drainage. negative: Drainage, Erythema General Appearance: positive: No acute distress, Alert Skin: positive: Color nml, No rash, Warm, Dry. negative: Diaphoresis Extremities: positive: Non-tender, Nml appearance Neurologic/Psychiatric: positive: Oriented x3 Comments/Other: Dressing is dry and intact No hematoma or erythema at incision site Siatic and femoral nerves in tact Appropriate range of motion for post operative course Impression/Plan - Problem List Problem List: 87 year old male who is post operative day 3 from an ORIF of the left hip for an intertrochanteric fracture done by Dr. Donohue on 02/05/2022 at [facility]. PLAN: - Resumed home elliquis for DVT prophylaxis - Weight bearing as tolerated with a walker on left hip - Pain control per hospitalist - Follow up with an orthopedist within 2 weeks of discharge for wound check and post operative imaging - Mepelex dressing can be removed 1 week from 02/05/2022 - Dermabond will fall off on its own, no sutures need to be removed
[2022-02-08 12:19] VITALS: BP 108/71
== END 2022-02-08 14:30 | DRG 481 ==
LOC: EDUNIT# → ED 17:05 → MS2 23:14
PROVIDERS: ADMIT Internal Medicine; ATTEND Specialist
PROC: 0QS706Z Reposition Left Upper Femur with Intramedullary Internal Fixation Device, Open Approach (ICD-10-PCS; principal; 2022-02-05 14:00)
DX: S72.145A Nondisplaced intertrochanteric fracture of left femur, initial encounter for closed fracture (principal); S72.142A Displaced intertrochanteric fracture of left femur, initial encounter for closed fracture; I48.20 Chronic atrial fibrillation, unspecified; W01.0XXA Fall on same level from slipping, tripping and stumbling without subsequent striking against object, initial encounter; I10 Essential (primary) hypertension; E11.9 Type 2 diabetes mellitus without complications; D72.829 Elevated white blood cell count, unspecified; E11.42 Type 2 diabetes mellitus with diabetic polyneuropathy; R15.9 Full incontinence of feces; H91.93 Unspecified hearing loss, bilateral; Z20.822 Contact with and (suspected) exposure to COVID-19; M19.90 Unspecified osteoarthritis, unspecified site; I45.10 Unspecified right bundle-branch block; E66.9 Obesity, unspecified; Z79.84 Long term (current) use of oral hypoglycemic drugs; Z87.891 Personal history of nicotine dependence; Z79.01 Long term (current) use of anticoagulants; Z68.33 Body mass index [BMI] 33.0-33.9, adult
CPT/HCPCS: 36415; 70450; 71045; 73502; 80048; 80053; 81001; 83036; 83735; 85025; 85610; 85730; 87086; 87633; 93005; 96361; 96374; 96375; 97110; 97162; 97165; 97530; 97535; 99284; 99285; A9270; J0690; J1170; J1815; J2795; J7120